=== PATIENT | male | born 1950 | race African-American/Black ===

== ENCOUNTER 2019-01-17 13:25 | Inpatient (IN) | payer MEDICARE ==
[2019-01-17] MEDS ORDERED: Lorazepam 2 MG/ML VIAL ONE (14:08)
[2019-01-17] MEDS ORDERED: Piperacillin/Tazobactam 4.5 GM VIAL ONE (14:08)
[2019-01-17 14:47] LABS: Lactic Acid 3.3 mmol/L (0.5-2.2)
[2019-01-17] MEDS ORDERED: Sodium Chloride 0.9% 1,000 ML IV SCH (15:15)
[2019-01-17] MEDS ORDERED: Dextrose 5% in Water 1,000 ML IV PRN (15:23)
[2019-01-17] MEDS ORDERED: Calcium Gluc 4.6 MEQ/10 ML (100 MG/ML) SLOW IVP ONE (15:25)
[2019-01-17] MEDS ORDERED: Calcium Gluconate 4.6 MEQ in Sodium Chloride 0.9% 100 ML IVPB SCH ×2 (15:30→23:15)
[2019-01-17] MEDS ORDERED: Piperacillin/Tazobactam 3.375 GM in Sodium Chloride 0.9% 100 ML IVPB SCH (18:00)
[2019-01-17] MEDS: Sodium Chloride 0.9% 1,000 ML IV SCH (20:00)
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
[2019-01-17] MEDS: Multivitamins, Adult 10 ML, Folic Acid 1 MG, Thiamine HCl 100 MG in Dextrose 5 %-0.45 %... IV SCH (21:16)
[2019-01-17] MEDS: Lorazepam 2 MG/ML VIAL SLOW IVP PRN (22:15)
[2019-01-17] MEDS: Famotidine/PF 20 mg/2ml Vial SLOW IVP SCH (23:16)
[2019-01-18] MEDS: Piperacillin/Tazobactam 3.375 GM in Sodium Chloride 0.9% 100 ML IVPB SCH ×4 (04:53→21:28)
[2019-01-18 05:23] LABS: ALT (SGPT) 31 U/L (8-55); AST (SGOT) 74 U/L (5-34); Alkaline Phosphatase 86 U/L (40-150); Anion Gap 15 mmol/L (10-20); BUN (Urea Nitrogen) Less than 4 mg/dL (8.4-25.7); Bilirubin, Total 2.5 mg/dL (0.2-1.2); CK (CPK) 1429 U/L (30-200); Calc. Creatinine Clearance 90 mL/min (70-130); Carbon Dioxide 23 mmol/L (23-31); Chloride 100 mmol/L (98-107); Estimated GFR-MDRD Greater than 90; Globulin 2.7 g/dL (2.4-3.5); Glucose 166 mg/dL (80-115); Potassium 3.7 mmol/L (3.5-5.1); Protein, Total 5.7 g/dL (5.8-8.1); Sodium 134 mmol/L (136-145)
[2019-01-18 05:31] LABS: #Lymphocytes 1.4 thou/uL (1.20-3.40); #Monocytes 1.5 thou/uL (0.11-0.59); #Neutrophils 12.7 thou/uL (1.40-6.50); %Basophils 0.2 % (0.0-1.0); %Eosinophils 0.2 % (0.0-10.0); %Lymphocytes 8.7 % (21.0-51.0); %Monocytes 9.4 % (0.0-10.0); %Neutrophils 81.6 % (42.0-75.0); Hemoglobin 13.2 g/dL (14.0-18.0); MDiff Complete? YES; Macrocytosis SLIGHT = 6-15 cells (100X) (0-5/hpf); Mean Corpuscular HGB CONC 34.1 g/dL (32.0-36.0); Mean Corpuscular Hemoglobin 34.7 pg (27.0-31.0); Mean Platelet Volume 7.5 fL (7.4-10.4); Platelet Count 168 thou/uL (130-400); Platelet Morphology Comment Appears Adequate; RBC Distribution Width 12.8 % (11.5-14.5); White Blood Cell (WBC) Count 15.6 thou/uL (4.8-10.8)
[2019-01-18] MEDS: Famotidine/PF 20 mg/2ml Vial SLOW IVP SCH ×2 (08:37→21:27)
[2019-01-18] MEDS: Enoxaparin Sodium 40 MG/0.4 ML SYRINGE SC SCH (08:37)
[2019-01-18] MEDS: Sodium Chloride 0.9% 1,000 ML IV SCH ×3 (08:37→21:27)
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
[2019-01-18] MEDS: Lorazepam 2 MG/ML VIAL SLOW IVP PRN ×3 (11:47→21:29)
[2019-01-18] MEDS: Dextrose 50% Abboject 50 ML SYRINGE SLOW IVP PRN (13:08)
[2019-01-18] MEDS: Multivitamins, Adult 10 ML, Folic Acid 1 MG, Thiamine HCl 100 MG in Dextrose 5 %-0.45 %... IV SCH (17:46)
[2019-01-18] MEDS ORDERED: Piperacillin/Tazobactam 3.375 GM in Sodium Chloride 0.9% 100 ML IVPB SCH (20:00)
--- NOTE | 2019-01-18 22:27 | PDOC.HOSPP ---
- Subjective Subjective: More awake, but still altered. - Objective Vital Signs & Weight: Vital Signs (12 hours) Temp 01/18/19 19:00 98.4 F 01/18/19 14:55 98.0 F 01/18/19 10:42 98.6 F Weight Admit Weight 104 lb 0.931 oz Weight 106 lb 4.205 oz Most Recent Monitor Data Heart Rate from ECG 109 NIBP 136/91 NIBP BP-Mean 106 Respiration from ECG 21 SpO2 100 I&O: 01/17/19 01/18/19 01/19/19 06:59 06:59 06:59 Intake Total 950 Output Total 650 Balance 300 Result Diagrams: 01/18/19 04:01 01/18/19 04:01 Additional Labs: Accuchecks 01/18/19 01/18/19 01/18/19 20:16 19:20 16:07 POC Glucose 92 93 115 H 01/18/19 01/18/19 01/18/19 14:02 12:51 10:04 POC Glucose 194 H 68 L 103 01/18/19 01/18/19 01/18/19 08:01 06:08 04:17 POC Glucose 131 H 168 H 176 H 01/18/19 01/18/19 01:57 00:11 POC Glucose 178 H 171 H ROS - Medication Medications: Active Medications Generic Name Dose Route Start Last Admin Trade Name Freq PRN Reason Stop Dose Admin Dextrose/Water 25 gm 01/17/19 15:23 01/18/19 13:08 Dextrose 50% SLOW IVP 25 gm PRN PRN Administration Hypoglycemia Enoxaparin Sodium 40 mg 01/18/19 09:00 01/18/19 08:37 Lovenox SC 40 mg 0900 RENETTA Administration Famotidine 20 mg 01/17/19 21:00 01/18/19 21:27 Pepcid SLOW IVP 20 mg BID RENETTA Administration Multivitamins 10 ml/ Folic 1,011.2 mls @ 100 mls/hr 01/17/19 15:15 01/18/19 17:46 Acid 1 mg/ Thiamine HCl 100 mg IV 1,011.2 mls / Dextrose/Sodium Chloride Q24HR RENETTA Administration Sodium Chloride 1,000 mls @ 100 mls/hr 01/17/19 15:15 01/18/19 21:27 Normal Saline 0.9% IV 1,000 mls .Q10H RENETTA Administration Piperacillin Sod/Tazobactam 100 mls @ 200 mls/hr 01/18/19 04:00 01/18/19 21: 28 Sod 3.375 gm/ Sodium Chloride IVPB 100 mls 0400,1000,1600,2200 RENETTA Administration Lorazepam 2 mg 01/18/19 21:15 01/18/19 21:29 Ativan SLOW IVP 2 mg Q4H PRN Administration Anxiety/Agitation - Exam General - other findings: Encephalopathic. Heart: RRR, no murmur, no gallops, no rubs, normal peripheral pulses Respiratory: CTAB, no wheezes, no ronchi, normal chest expansion, no tachypnea, normal percussion Respiratory - other findings: scattered rales. Gastrointestinal: soft Skin: normal turgor Hosp A/P (1) Acute encephalopathy Code(s): G93.40 - ENCEPHALOPATHY, UNSPECIFIED Status: Acute (2) Hypoglycemia Code(s): E16.2 - HYPOGLYCEMIA, UNSPECIFIED Status: Acute (3) Hypothermia Code(s): T68.XXXA - HYPOTHERMIA, INITIAL ENCOUNTER Status: Acute (4) Alcohol abuse Code(s): F10.10 - ALCOHOL ABUSE, UNCOMPLICATED Status: Acute (5) Cocaine abuse Code(s): F14.10 - COCAINE ABUSE, UNCOMPLICATED Status: Acute (6) Pneumonia Code(s): J18.9 - PNEUMONIA, UNSPECIFIED ORGANISM Status: Acute - Plan More awake, but still encephalopthic. Continue hydration. Continnue abx. Daily Banana bag.
[2019-01-19] MEDS: Piperacillin/Tazobactam 3.375 GM in Sodium Chloride 0.9% 100 ML IVPB SCH ×2 (03:23→09:52)
--- NOTE | 2019-01-19 09:14 | PRG ---
DATE OF SERVICE: 01/19/2019 SUBJECTIVE: Mitch Higuera this morning, he is awake, alert, responsive, but is clearly encephalopathic. OBJECTIVE: VITAL SIGNS: Temperature 98, sats 97% on room air, blood pressure 140/96, respiratory rate 18. GENERAL: He is thrashing all over the bed. CHEST: Decreased breath sounds. No wheezing. CARDIAC: Normal S1 and S2. No gallops. ABDOMEN: No masses. IMPRESSION: 1. Encephalopathy. 2. Alcohol abuse, substance abuse, possibly aspiration pneumonia. Baseline chest x-ray being ordered. He is much improved. I am going to try and discontinue his IV antibiotics. Switch him to oral medication. Supportive care PT. We will follow. Job ID: [id number]
[2019-01-19] MEDS: Famotidine/PF 20 mg/2ml Vial SLOW IVP SCH ×2 (09:44→19:52)
[2019-01-19] MEDS: Lorazepam 2 MG/ML VIAL SLOW IVP PRN ×3 (09:44→19:52)
[2019-01-19] MEDS: Enoxaparin Sodium 40 MG/0.4 ML SYRINGE SC SCH (09:45)
[2019-01-19] MEDS: Sodium Chloride 0.9% 1,000 ML IV SCH (09:51)
--- NOTE | 2019-01-19 11:51 | RAD ---
PORTABLE AP CHEST XRAY: HISTORY: Pneumonia. COMPARISON: 12/11/2017. FINDINGS: The cardiac silhouette and pulmonary vasculature are within normal limits. Pleural an parenchymal sc arring is seen at the left lung base. There are linear densities along the right chest, but 2 separa te chest x-rays were performed, and there are lung markings seen lateral to this region which has the appearance most suggestive of a skin fold. The lungs are otherwise clear. No consolidation is seen . Radiopaque sutures overlie the epigastric region. Vascular calcifications are seen in the thoraci c aorta. IMPRESSION: Findings likely related to chronic lung changes at the left lung base. No acute cardiopulmonary proc ess is appreciated. POS: OFF
[2019-01-19] MEDS: Dextrose 5 % And 0.9 % NaCl 1,000 ML IV SCH (13:12)
[2019-01-19] MEDS: Multivitamins, Adult 10 ML, Folic Acid 1 MG, Thiamine HCl 100 MG in Dextrose 5 %-0.45 %... IV SCH (14:15)
[2019-01-19 15:24] LABS: #Eosinphils 0.1 thou/uL (0.0-0.7); #Lymphocytes 1.5 thou/uL (1.20-3.40); #Monocytes 1.3 thou/uL (0.11-0.59); #Neutrophils 7.6 thou/uL (1.40-6.50); %Basophils 0.1 % (0.0-1.0); %Eosinophils 1.2 % (0.0-10.0); %Monocytes 12.3 % (0.0-10.0); %Neutrophils 72.4 % (42.0-75.0); Hemoglobin 12.2 g/dL (14.0-18.0); Mean Corpuscular HGB CONC 35.7 g/dL (32.0-36.0); Mean Corpuscular Hemoglobin 35.2 pg (27.0-31.0); Mean Corpuscular Volume 98.5 fL (78.0-98.0); Mean Platelet Volume 7.5 fL (7.4-10.4); Platelet Count 148 thou/uL (130-400); RBC Distribution Width 12.2 % (11.5-14.5); Red Blood Cell (RBC) Count 3.48 mill/uL (4.70-6.10); White Blood Cell (WBC) Count 10.5 thou/uL (4.8-10.8)
[2019-01-19 15:36] LABS: ALT (SGPT) 40 U/L (8-55); AST (SGOT) 92 U/L (5-34); Albumin 3.1 g/dL (3.4-4.8); Alkaline Phosphatase 74 U/L (40-150); Anion Gap 12 mmol/L (10-20); BUN (Urea Nitrogen) Less than 4 mg/dL (8.4-25.7); Bilirubin, Total 3.7 mg/dL (0.2-1.2); CK (CPK) 1461 U/L (30-200); Calc. Creatinine Clearance 95 mL/min (70-130); Calcium 7.8 mg/dL (7.8-10.44); Carbon Dioxide 25 mmol/L (23-31); Chloride 96 mmol/L (98-107); Estimated GFR-MDRD Greater than 90; Globulin 2.1 g/dL (2.4-3.5); Glucose 82 mg/dL (80-115); Protein, Total 5.2 g/dL (5.8-8.1); Sodium 130 mmol/L (136-145)
[2019-01-19 15:40] LABS: Potassium 2.9 mmol/L (3.5-5.1)
--- NOTE | 2019-01-19 15:44 | PDOC.HOSPP ---
- Subjective Subjective: Still encephalopathic and non-verbal. - Objective Vital Signs & Weight: Vital Signs (12 hours) Temp BP Pulse Ox 01/19/19 14:56 97.6 F 01/19/19 12:00 158/93 H 01/19/19 10:28 98.3 F 01/19/19 08:00 139/98 H 98 01/19/19 07:00 98.0 F 01/19/19 04:00 142/85 H Weight Admit Weight 104 lb 0.931 oz Weight 103 lb 1.6 oz Most Recent Monitor Data Heart Rate from ECG 104 NIBP 144/104 NIBP BP-Mean 117 Respiration from ECG 23 SpO2 100 I&O: 01/18/19 01/19/19 01/20/19 06:59 06:59 06:59 Intake Total 950 1200 Output Total 650 1000 Balance 300 200 Result Diagrams: 01/19/19 15:09 01/19/19 15:09 Additional Labs: Accuchecks 01/19/19 01/19/19 01/19/19 14:13 12:17 09:59 POC Glucose 87 64 L 91 01/19/19 01/19/19 01/19/19 08:03 06:02 03:58 POC Glucose 99 82 102 01/19/19 01/19/19 01/18/19 01:58 00:18 22:18 POC Glucose 124 H 111 H 135 H 01/18/19 01/18/19 01/18/19 20:16 19:20 16:07 POC Glucose 92 93 115 H ROS - Medication Medications: Active Medications Generic Name Dose Route Start Last Admin Trade Name Sánchezq PRN Reason Stop Dose Admin Dextrose/Water 25 gm 01/17/19 15:23 01/18/19 13:08 Dextrose 50% SLOW IVP 25 gm PRN PRN Administration Hypoglycemia Enoxaparin Sodium 40 mg 01/18/19 09:00 01/19/19 09:45 Lovenox SC 40 mg 0900 RENETTA Administration Famotidine 20 mg 01/17/19 21:00 01/19/19 09:44 Pepcid SLOW IVP 20 mg BID RENETTA Administration Multivitamins 10 ml/ Folic 1,011.2 mls @ 100 mls/hr 01/17/19 15:15 01/19/19 14:15 Acid 1 mg/ Thiamine HCl 100 mg IV 1,011.2 mls / Dextrose/Sodium Chloride Q24HR RENETTA Administration Dextrose/Sodium Chloride 1,000 mls @ 100 mls/hr 01/19/19 13:00 01/19/19 13:12 D5 0.9% Ns IV 1,000 mls .Q10H RENETTA Administration Lorazepam 2 mg 01/18/19 21:15 01/19/19 14:16 Ativan SLOW IVP 2 mg Q4H PRN Administration Anxiety/Agitation - Exam General - other findings: encephalopathic. Not interactive. Does not speak. Heart: RRR, no murmur, no gallops, no rubs, normal peripheral pulses Respiratory: CTAB, no wheezes, no rales, no ronchi, normal chest expansion, no tachypnea, normal percussion Gastrointestinal: soft, non-distended, normal bowel sounds Extremities: no cyanosis, no clubbing, no edema Extremeties - other findings: Few small superficial abrasions. Neurological - other findings: Moves entire body spontaneously. encephalopathic. Musculoskeletal: diffuse muscle atrophy Hosp A/P (1) Acute encephalopathy Code(s): G93.40 - ENCEPHALOPATHY, UNSPECIFIED Status: Acute (2) Hypoglycemia Code(s): E16.2 - HYPOGLYCEMIA, UNSPECIFIED Status: Acute (3) Hypothermia Code(s): T68.XXXA - HYPOTHERMIA, INITIAL ENCOUNTER Status: Acute (4) Alcohol abuse Code(s): F10.10 - ALCOHOL ABUSE, UNCOMPLICATED Status: Acute (5) Cocaine abuse Code(s): F14.10 - COCAINE ABUSE, UNCOMPLICATED Status: Acute (6) Pneumonia Code(s): J18.9 - PNEUMONIA, UNSPECIFIED ORGANISM Status: Acute (7) Hyponatremia Code(s): E87.1 - HYPO-OSMOLALITY AND HYPONATREMIA Status: Acute - Plan still encephalopthic. Possibly due to drugs, EtOH WD, or possibly some brain injury due to those things in addition to hypoglycemia and hypothermia. Would like to repeat CT, but he will not be still. Had some BZD's and did not do much to settle his moving. Continue hydration. Recheck labs. Continue abx. Dr. Castaneda changed to PO, but not sure he will be able to take po' s. Daily Banana bag. Appreciate Strap Setter input. Per nurse, IV situation is tenuous. May need to consider DHT feeds.
[2019-01-19] MEDS ORDERED: Potassium Chloride 20 MEQ TAB PO SCH (15:45)
[2019-01-19] MEDS ORDERED: Potassium Chloride 40 MEQ in Sodium Chloride 0.9% 500 ML IVPB SCH (16:15)
[2019-01-19] MEDS: Amoxicillin/Potassium Clav 500 MG TAB PO SCH (19:53)
[2019-01-20] MEDS: Dextrose 5 % And 0.9 % NaCl 1,000 ML IV SCH (02:03)
[2019-01-20] MEDS ORDERED: Potassium Chloride 40 MEQ in Premix Bag 1 BAG IVPB PRN (02:59)
[2019-01-20] MEDS ORDERED: Potassium Chloride 20 MEQ TAB PO PRN (02:59)
[2019-01-20] MEDS ORDERED: Potassium Phosphate 12 MMOL in Sodium Chloride 0.9% 250 ML 250 ML IV PRN (02:59)
[2019-01-20] MEDS ORDERED: Magnesium Oxide 400 MG TAB PO PRN ×2 (02:59)
[2019-01-20] MEDS ORDERED: Potassium Phosphate 9 MMOL in Sodium Chloride 0.9% 100 ML IVPB PRN (02:59)
[2019-01-20] MEDS ORDERED: CCU ELECTROLYTE REPLACEMENT PROTOCOL FS PRN (02:59)
[2019-01-20] MEDS ORDERED: Potassium Phosphate 15 MMOL in Sodium Chloride 0.9% 250 ML 250 ML IV PRN (02:59)
[2019-01-20] MEDS ORDERED: PHOS-NAK 1 PKT PACK PO PRN ×2 (02:59)
[2019-01-20 06:21] LABS: #Basophils 0.1 thou/uL (0.0-0.2); #Eosinphils 0.1 thou/uL (0.0-0.7); #Lymphocytes 1.4 thou/uL (1.20-3.40); #Monocytes 1.1 thou/uL (0.11-0.59); #Neutrophils 6.6 thou/uL (1.40-6.50); %Basophils 0.6 % (0.0-1.0); %Lymphocytes 15.2 % (21.0-51.0); %Monocytes 11.6 % (0.0-10.0); %Neutrophils 71.5 % (42.0-75.0); Mean Corpuscular HGB CONC 34.5 g/dL (32.0-36.0); Mean Corpuscular Volume 98.4 fL (78.0-98.0); Mean Platelet Volume 7.3 fL (7.4-10.4); Platelet Count 182 thou/uL (130-400); Red Blood Cell (RBC) Count 3.82 mill/uL (4.70-6.10); White Blood Cell (WBC) Count 9.2 thou/uL (4.8-10.8)
[2019-01-20 06:40] LABS: Anion Gap 12 mmol/L (10-20); BUN (Urea Nitrogen) Less than 4 mg/dL (8.4-25.7); Calc. Creatinine Clearance 95 mL/min (70-130); Calcium 8.1 mg/dL (7.8-10.44); Carbon Dioxide 25 mmol/L (23-31); Chloride 92 mmol/L (98-107); Estimated GFR-MDRD Greater than 90; Glucose 117 mg/dL (80-115); Sodium 126 mmol/L (136-145)
[2019-01-20] MEDS: Enoxaparin Sodium 40 MG/0.4 ML SYRINGE SC SCH (08:59)
[2019-01-20] MEDS: Sodium Chloride 0.9% 1,000 ML IV SCH (08:59)
[2019-01-20] MEDS: Famotidine/PF 20 mg/2ml Vial SLOW IVP SCH ×2 (08:59→20:01)
[2019-01-20] MEDS: Amoxicillin/Potassium Clav 500 MG TAB PO SCH ×2 (09:00→20:01)
--- NOTE | 2019-01-20 09:21 | PRG ---
DATE OF SERVICE: 01/20/2019 SUBJECTIVE: Mitch Higuera remains encephalopathic, had no nutrition for 3 days, probably going to need a feeding tube. We need to try and get family members to assess the situation. OBJECTIVE: VITAL SIGNS: Temperature 97, blood pressure 142/87, respirations 18, pulse 80. CHEST: Decreased breath sounds. No wheezing. CARDIAC: Normal S1 and S2. No gallops. ABDOMEN: No masses. LABORATORY DATA: Sodium is 126, glucose is 140. Lytes are normal otherwise. White count 9000. ASSESSMENT AND PLAN: 1. Aspiration pneumonia. 2. Encephalopathy. 3. Hyponatremia. Switching his IV to normal saline. Urinary sodium being ordered. P.o. antibiotics, supportive care, PT. We will follow strict is. Job ID: [id number]
[2019-01-20 09:33] LABS: Magnesium 1.2 mg/dL (1.6-2.6)
[2019-01-20 09:37] LABS: Phosphorus 1.3 mg/dL (2.3-4.7)
[2019-01-20] MEDS: Lorazepam 2 MG/ML VIAL SLOW IVP PRN (11:03)
[2019-01-20] MEDS: Magnesium 2 GM/50 ML 2 GM in Premix Bag 1 BAG IVPB PRN (11:42)
[2019-01-20] MEDS: Multivitamins, Adult 10 ML, Folic Acid 1 MG, Thiamine HCl 100 MG in Dextrose 5 %-0.45 %... IV SCH (14:41)
--- NOTE | 2019-01-20 15:18 | PQF ---
CLINICAL DOCUMENTATION IMPROVEMENT CLARIFICATION FORM: ICD-10 Updated PLEASE DO AN ADDENDUM TO THE PROGRESS NOTE WITH ANY DOCUMENTATION UPDATES OR ADDITIONS AND CARRY THROUGH TO DC SUMMARY. THANK YOU. Date: 01/20/2019 ATTN: Dr. Juárez Please exercise your independent, professional judgment in responding to the clarification form. 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 Chronic alcoholism. Hypomagnesemia. Hypocalcemia. Rhabdomyolysis, mild. TREATMENT: [employer]visor [employer] Assessment triggered for BMI 16.2. Moderate Malnutrition (in acute illness) Energy Intake: <75% of estimated energy requirement for > 7 days Weight Loss: 1-2%/1 week; 5%/ 1 month; 7.5%/3 months Other: mild body fat loss; mild muscle mass loss; mild fluid accumulation; Severe Malnutrition (in acute illness) Energy Intake: < 50% of estimated energy requirement for > 5 days Weight Loss: >1-2%/1 week; >5%/1 month; >7.5%/3 months Other: moderate body fat loss; moderate muscle mass loss; moderate- severe fluid accumulation; measurably reduced supplier development manager strength Moderate Malnutrition (in chronic illness) Energy Intake: <75% of estimated energy requirement for >1 month Weight Loss: 5%/1 month; 7.5%/3 months; 10%/6 months; 20%/1 year Other: mild body fat loss; mild muscle mass loss; mild fluid accumulation Severe Malnutrition (in chronic illness) Energy Intake: <75% of estimated energy requirement for >1 month Weight Loss: >5%/1 month; >7.5%/3 months; >10%/6 months; >20%/1 year Other: severe body fat loss; severe muscle mass loss; severe fluid accumulation; measurably reduced supplier development manager strength Thank you, Nazanin (This form is maintained as a part of the permanent medical record) 2015 [employer] All Rights Reserved Nazanin Flores RN, BSN [email or web address] Office: [phone] [facility]
--- NOTE | 2019-01-20 15:43 | PDOC.HOSPP ---
- Subjective Encounter Date: 01/20/19 Encounter Time: 14:30 Subjective: Patient seen and examined for Encephalopathy. Remains confused. No fever/ chills.No overnight events - Objective Vital Signs & Weight: Vital Signs (12 hours) Temp Pulse Ox 01/20/19 15:12 97.7 F 01/20/19 11:17 98.0 F 01/20/19 08:00 100 01/20/19 07:29 97.9 F 01/20/19 03:51 98.3 F Weight Admit Weight 104 lb 0.931 oz Weight 101 lb 3.2 oz Most Recent Monitor Data Heart Rate from ECG 94 NIBP 146/90 NIBP BP-Mean 108 Respiration from ECG 17 SpO2 100 I&O: 01/19/19 01/20/19 01/21/19 06:59 06:59 06:59 Intake Total 1200 2409 Output Total 1000 3000 Balance 200 -591 Result Diagrams: 01/20/19 06:12 01/20/19 06:12 Additional Labs: Accuchecks 01/20/19 01/20/19 01/20/19 12:21 10:19 08:09 POC Glucose 93 108 140 H 01/20/19 01/20/19 01/20/19 06:17 04:06 02:11 POC Glucose 124 H 130 H 151 H 01/20/19 01/19/19 01/19/19 00:23 22:06 19:57 POC Glucose 121 H 133 H 119 H 01/19/19 01/19/19 18:25 16:05 POC Glucose 112 H 95 ROS - Review of Systems ROS unobtainable: due to mental status - Medication Medications: Active Medications Generic Name Dose Route Start Last Admin Trade Name Freq PRN Reason Stop Dose Admin Amoxicillin/Clavulanate Potassium 500 mg 01/19/19 21:00 01/20/19 09:00 Augmentin PO 01/24/19 21:01 Not Given Q12HR RENETTA Dextrose/Water 25 gm 01/17/19 15:23 01/18/19 13:08 Dextrose 50% SLOW IVP 25 gm PRN PRN Administration Hypoglycemia Famotidine 20 mg 01/17/19 21:00 01/20/19 08:59 Pepcid SLOW IVP 20 mg BID RENETTA Administration Multivitamins 10 ml/ Folic 1,011.2 mls @ 100 mls/hr 01/17/19 15:15 01/20/19 14:41 Acid 1 mg/ Thiamine HCl 100 mg IV 1,011.2 mls / Dextrose/Sodium Chloride Q24HR RENETTA Administration Magnesium Sulfate 2 gm/ Device 50 mls @ 50 mls/hr 01/20/19 02:59 01/20/19 11: 42 IVPB 50 mls ASDIR PRN Administration MAGNESIUM < 1.4 Sodium Chloride 1,000 mls @ 70 mls/hr 01/20/19 08:45 01/20/19 08:59 Normal Saline 0.9% IV 1,000 mls .[id number] RENETTA Administration Lorazepam 2 mg 01/18/19 21:15 01/20/19 11:03 Ativan SLOW IVP 2 mg Q4H PRN Administration Anxiety/Agitation Sodium Chloride 10 ml 01/20/19 09:00 01/20/19 08:59 Flush - Normal Saline IVF 10 ml Q12HR RENETTA Administration - Exam NAD (confused) Heart: RRR, no rubs Respiratory: CTAB, rales (at bases), rhonchi Gastrointestinal: soft, normal bowel sounds, no guarding, no rigidity Extremities: no edema Psychiatric: not oriented (confused - not following commands) Hosp A/P (1) Toxic metabolic encephalopathy Code(s): G92 - TOXIC ENCEPHALOPATHY Status: Acute (2) Aspiration pneumonia Code(s): J69.0 - PNEUMONITIS DUE TO INHALATION OF FOOD AND VOMIT Status: Acute (3) Chronic alcohol abuse Code(s): F10.10 - ALCOHOL ABUSE, UNCOMPLICATED Status: Chronic (4) Electrolyte abnormality Code(s): E87.8 - OTH DISORDERS OF ELECTROLYTE AND FLUID BALANCE, NEC Status: Acute (5) Moderate protein-calorie malnutrition Code(s): E44.0 - MODERATE PROTEIN-CALORIE MALNUTRITION Status: Acute (6) Other issues per previous notes Status: Acute - Plan person catheter, continue antibiotics, respiratory therapy Cont Atbx Replace Phosphorus and Magnessium Cont IVF Cont MVM AM labs
[2019-01-20] MEDS ORDERED: Potassium Phosphate 9 MMOL in Sodium Chloride 0.9% 100 ML IVPB SCH (15:45)
[2019-01-21] MEDS: Sodium Chloride 0.9% 1,000 ML IV SCH ×2 (00:55→11:56)
[2019-01-21 04:09] LABS: ALT (SGPT) 41 U/L (8-55); AST (SGOT) 65 U/L (5-34); Albumin 2.9 g/dL (3.4-4.8); Alkaline Phosphatase 75 U/L (40-150); Anion Gap 11 mmol/L (10-20); BUN (Urea Nitrogen) Less than 4 mg/dL (8.4-25.7); Bilirubin, Total 2.5 mg/dL (0.2-1.2); Calc. Creatinine Clearance 101 mL/min (70-130); Calcium 8.2 mg/dL (7.8-10.44); Carbon Dioxide 27 mmol/L (23-31); Chloride 94 mmol/L (98-107); Estimated GFR-MDRD Greater than 90; Globulin 2.3 g/dL (2.4-3.5); Glucose 84 mg/dL (80-115); Magnesium 1.3 mg/dL (1.6-2.6); Phosphorus 2.6 mg/dL (2.3-4.7); Potassium 2.6 mmol/L (3.5-5.1); Protein, Total 5.2 g/dL (5.8-8.1); Sodium 129 mmol/L (136-145)
[2019-01-21] MEDS: Magnesium 2 GM/50 ML 2 GM in Premix Bag 1 BAG IVPB PRN (04:18)
[2019-01-21] MEDS: Potassium Chloride 40 MEQ in Sodium Chloride 0.9% 250 ML 250 ML IVPB PRN ×3 (04:24→11:56)
[2019-01-21] MEDS: Amoxicillin/Potassium Clav 500 MG TAB PO SCH ×2 (09:00→20:50)
[2019-01-21] MEDS: Famotidine/PF 20 mg/2ml Vial SLOW IVP SCH ×2 (09:00→20:23)
--- NOTE | 2019-01-21 10:18 | PRG ---
DATE OF SERVICE: 01/21/2019 SUBJECTIVE: Mr. Higuera this morning, still remains encephalopathic. OBJECTIVE: VITAL SIGNS: Blood pressure 133/79, temperature 98, saturations 96, respirations 18. CHEST: No wheezing or crackles. CARDIAC: Normal S1 and S2. No gallops. ABDOMEN: No masses. LABORATORY DATA: Sodium is 129, potassium is 2.6. His urinary sodium was 165, suggest that he may very well have SIADH. Albumin is low. ASSESSMENT AND PLAN: 1. Encephalopathy. 2. Hyponatremia. Need nutrition. Supportive care. P.o. antibiotics. Prognosis is guarded. Replace electrolytes. Job ID: [id number]
[2019-01-21] MEDS: Dextrose 50% Abboject 50 ML SYRINGE SLOW IVP PRN (10:22)
--- NOTE | 2019-01-21 10:37 | PQF ---
CLINICAL DOCUMENTATION IMPROVEMENT CLARIFICATION FORM: ICD-10 Updated PLEASE DO AN ADDENDUM TO THE PROGRESS NOTE WITH ANY DOCUMENTATION UPDATES OR ADDITIONS AND CARRY THROUGH TO DC SUMMARY. THANK YOU. DATE: 01/21/2019 ATTN: Dr. Ventura Please exercise your independent, professional judgment in responding to the clarification form. Clinical indicators are provided on the bottom of this form for your review Please check appropriate box(es): [ x ] Sepsis due to Aspiration Pneumonia. [ ] Sepsis due to other: [ ] Severe sepsis with acute organ dysfunction of: (Examples: encephalopathy, other) [ ] Localized infection without sepsis [ ] Other diagnosis [ ] Unable to determine In addition, please specify: Present on Admission (POA): [ x] Yes [ ] No [ ] Unable to determine For continuity of documentation, please document condition throughout progress notes and discharge summary. Thank You. CLINICAL INDICATORS - SIGNS / SYMPTOMS / LABS H&P 01/17: BP 110/75, pulse 103, resp. 20, O2 sat 92% RA LAB: initial lactic acid was 4.1, repeat 3.3 Possible sepsis. The pt may have left-sided pneumonia. He has a mild tachycardia that did not respond to fluid resuscitation and lactic acidosis. PN 01/20: Toxic metabolic encephalopathy. Aspiration pneumonia . RISKS: H&P: Acute encephalopathy with unconscious state. Chronic alcoholism. 01/18 (Castaneda) Metabolic encephalopathy, aspiration pneumonia. TREATMENT: Order 01/17: IV Zosyn. Dc'd 01/17. MAR: 01/19: Augmentin 500mg po q12 hr MAR: 01/20 NS IV 70ml/hr Thank you, Nazanin (This form is maintained as a part of the permanent medical record) 2015 [employer]. All Rights Reserved Nazanin Flores RN, BSN [email or web address] Office: [phone] [facility]
[2019-01-21 10:52] LABS: ALT (SGPT) 41 U/L (8-55); AST (SGOT) 60 U/L (5-34); Albumin 2.9 g/dL (3.4-4.8); Alkaline Phosphatase 73 U/L (40-150); Anion Gap 11 mmol/L (10-20); BUN (Urea Nitrogen) Less than 4 mg/dL (8.4-25.7); Bilirubin, Total 2.2 mg/dL (0.2-1.2); Calc. Creatinine Clearance 117 mL/min (70-130); Carbon Dioxide 26 mmol/L (23-31); Chloride 95 mmol/L (98-107); Estimated GFR-MDRD Greater than 90; Globulin 2.2 g/dL (2.4-3.5); Glucose 65 mg/dL (80-115); Protein, Total 5.1 g/dL (5.8-8.1); Sodium 129 mmol/L (136-145)
--- NOTE | 2019-01-21 12:50 | PDOC.HOSPP ---
- Subjective Encounter Date: 01/21/19 Encounter Time: 10:40 non-verbal Subjective: Patient seen and examined. No overnight events - Objective Vital Signs & Weight: Vital Signs (12 hours) Temp Pulse Ox 01/21/19 11:22 98.0 F 01/21/19 08:00 100 01/21/19 07:13 98.0 F 01/21/19 03:57 98.3 F Weight Admit Weight 104 lb 0.931 oz Weight 106 lb 14.4 oz Most Recent Monitor Data Heart Rate from ECG 90 NIBP 133/79 NIBP BP-Mean 97 Respiration from ECG 22 SpO2 100 I&O: 01/20/19 01/21/19 01/22/19 06:59 06:59 06:59 Intake Total 2409 2394 Output Total 3000 1825 Balance -591 569 Result Diagrams: 01/20/19 06:12 01/21/19 09:58 Additional Labs: Accuchecks 01/21/19 01/21/19 01/21/19 10:02 05:33 03:49 POC Glucose 72 87 99 01/21/19 01/21/19 01/20/19 02:01 00:01 22:07 POC Glucose 104 117 H 118 H 01/20/19 01/20/19 01/20/19 20:18 18:22 16:47 POC Glucose 131 H 127 H 107 01/20/19 12:21 POC Glucose 93 EKG Reviewed by me: Yes ROS - Review of Systems ROS unobtainable: due to mental status - Medication Medications: Active Medications Generic Name Dose Route Start Last Admin Trade Name Freq PRN Reason Stop Dose Admin Amoxicillin/Clavulanate Potassium 500 mg 01/19/19 21:00 01/21/19 09:00 Augmentin PO 01/24/19 21:01 Not Given Q12HR RENETTA Dextrose/Water 25 gm 01/17/19 15:23 01/21/19 10:22 Dextrose 50% SLOW IVP 25 gm PRN PRN Administration Hypoglycemia Famotidine 20 mg 01/17/19 21:00 01/21/19 09:00 Pepcid SLOW IVP 20 mg BID RENETTA Administration Multivitamins 10 ml/ Folic 1,011.2 mls @ 100 mls/hr 01/17/19 15:15 01/20/19 14:41 Acid 1 mg/ Thiamine HCl 100 mg IV 1,011.2 mls / Dextrose/Sodium Chloride Q24HR RENETTA Administration Potassium Chloride 40 meq/ 270 mls @ 135 mls/hr 01/20/19 02:59 01/21/19 11:56 Sodium Chloride IVPB 270 mls ASDIR PRN Administration FOR SERUM K+ 2.5 - 3.5 Magnesium Sulfate 2 gm/ Device 50 mls @ 50 mls/hr 01/20/19 02:59 01/21/19 04: 18 IVPB 50 mls ASDIR PRN Administration MAGNESIUM < 1.4 Sodium Chloride 1,000 mls @ 70 mls/hr 01/20/19 08:45 01/21/19 11:56 Normal Saline 0.9% IV 1,000 mls .[id number] RENETTA Administration Lorazepam 2 mg 01/18/19 21:15 01/20/19 11:03 Ativan SLOW IVP 2 mg Q4H PRN Administration Anxiety/Agitation Sodium Chloride 10 ml 01/20/19 09:00 01/21/19 09:00 Flush - Normal Saline IVF 10 ml Q12HR RENETTA Administration - Exam NAD, ill appearing Eye: PERRL, anicteric sclera ENT: normocephalic atraumatic, no oropharyngeal lesions Neck: supple, symmetric, no JVD Heart: RRR, no murmur, no gallops Respiratory: CTAB, no wheezes, no rales Gastrointestinal: soft, non-tender, non-distended Extremities: no cyanosis, no clubbing, no edema Skin: normal turgor, no lesions Neurological: CN's grossly intact Musculoskeletal: normal tone, normal strength Psychiatric: normal affect Hosp A/P (1) Sepsis Code(s): A41.9 - SEPSIS, UNSPECIFIED ORGANISM Status: Acute (2) Aspiration pneumonia Code(s): J69.0 - PNEUMONITIS DUE TO INHALATION OF FOOD AND VOMIT Status: Acute (3) Acute encephalopathy Code(s): G93.40 - ENCEPHALOPATHY, UNSPECIFIED Status: Acute (4) Alcohol abuse Code(s): F10.10 - ALCOHOL ABUSE, UNCOMPLICATED Status: Acute (5) Cocaine abuse Code(s): F14.10 - COCAINE ABUSE, UNCOMPLICATED Status: Acute (6) Electrolyte abnormality Code(s): E87.8 - OTH DISORDERS OF ELECTROLYTE AND FLUID BALANCE, NEC Status: Acute (7) Moderate protein-calorie malnutrition Code(s): E44.0 - MODERATE PROTEIN-CALORIE MALNUTRITION Status: Acute (8) Failure to thrive in adult Status: Acute - Plan old records reviewed/req, continue antibiotics replace potassium and magnesium medication reviewed as below symptomatic treatment continue augmentin nutritional support
--- NOTE | 2019-01-21 13:24 | PDOC.PALCO ---
Palliative Care Consult - Consult Details Requesting Physician: Dr Castaneda Reason for Consult: goals of care Family Members Present: None - Pertinent HPI Mr Kalen was found non responsive and EMS was called. Patient has no known residence. In route to emergency room patient was hypothermic, with glucose of 32. Admitted to IMCU secondary to compromised nonresponsive state. Palliative Care consult for assistance with goals of care. Palliative care unable to determine patient next of kin. Sister is to arrive 01/22, there is a woman who says she is his spouse but they were not legally and have not lived together recently. Patient appears to have had transient living situations secondary to substance/alcohol abuse. Nephew is currently point of contact. - Pertinent PMH Unable to determine secondary to patient non responsive status. - Social History Smoking Status: Smokes 11 or more cig/day Smoking: cigarettes Alcohol Use: heavy Drug Use History: cocaine (transient living situations) - Allergies Allergies/Adverse Reactions: Allergies Allergy/AdvReac Type Severity Reaction Status Date / Time No Known Drug Allergies Allergy Verified 01/18/19 03:32 - Subjective Non labored respirations, unable to arouse. ROS: Unable to assess ROS as patient is non responsive - Objective Vital Signs: Vital Signs - Most Recent Temp Pulse Resp BP Pulse Ox 98.0 F 158/93 H 100 01/21/19 11:22 01/19/19 12:00 01/21/19 08:00 Palliative Performance Scale: 20 - Physical Exam Deviation from normal: non responsive HEENT: moist MMs Respiratory: clear to auscultation bilateral, unlabored breathing Deviation from normal: diminished to bases Cardiovascular: RRR Deviation from normal: murmur Gastrointestinal: soft, non-tender Musculoskeletal: no edema Skin: normal turgor - Problem List (1) Palliative care encounter Code(s): Z51.5 - ENCOUNTER FOR PALLIATIVE CARE Current Visit: Yes Status: Acute (2) Acute encephalopathy Code(s): G93.40 - ENCEPHALOPATHY, UNSPECIFIED Current Visit: Yes Status: Acute (3) Alcohol abuse Code(s): F10.10 - ALCOHOL ABUSE, UNCOMPLICATED Current Visit: Yes Status: Acute (4) Moderate protein-calorie malnutrition Code(s): E44.0 - MODERATE PROTEIN-CALORIE MALNUTRITION Current Visit: Yes Status: Acute - Plan/Recommendations Plan: Remi Garner RNout of school hours care worker arranged family meeting tomorrow after patient sister arrives from out of town. Will address resuscitative status with family and goals of care. [40] minutes spent on this encounter with >50% of the time in counseling and coordination of care. Thank you for this very appropriate consult.
[2019-01-21] MEDS: Multivitamins, Adult 10 ML, Folic Acid 1 MG, Thiamine HCl 100 MG in Dextrose 5 %-0.45 %... IV SCH (15:52)
[2019-01-21] MEDS: Dextrose 5 % And 0.9 % NaCl 1,000 ML IV SCH (17:07)
[2019-01-22] MEDS: Sodium Chloride 0.9% 1,000 ML IV SCH (04:45)
[2019-01-22] MEDS: Dextrose 5 % And 0.9 % NaCl 1,000 ML IV SCH (05:55)
[2019-01-22 07:21] LABS: Hemoglobin 11.5 g/dL (14.0-18.0); Mean Corpuscular HGB CONC 34.1 g/dL (32.0-36.0); Mean Corpuscular Hemoglobin 34.5 pg (27.0-31.0); Mean Platelet Volume 7.1 fL (7.4-10.4); Platelet Count 223 thou/uL (130-400); RBC Distribution Width 12.3 % (11.5-14.5); Red Blood Cell (RBC) Count 3.34 mill/uL (4.70-6.10); White Blood Cell (WBC) Count 7.5 thou/uL (4.8-10.8)
[2019-01-22 07:22] LABS: ALT (SGPT) 36 U/L (8-55); AST (SGOT) 45 U/L (5-34); Albumin 2.8 g/dL (3.4-4.8); Alkaline Phosphatase 71 U/L (40-150); Anion Gap 9 mmol/L (10-20); BUN (Urea Nitrogen) Less than 4 mg/dL (8.4-25.7); Bilirubin, Total 1.8 mg/dL (0.2-1.2); Calc. Creatinine Clearance 104 mL/min (70-130); Calcium 8.1 mg/dL (7.8-10.44); Carbon Dioxide 25 mmol/L (23-31); Chloride 97 mmol/L (98-107); Estimated GFR-MDRD Greater than 90; Globulin 2.4 g/dL (2.4-3.5); Glucose 123 mg/dL (80-115); Magnesium 1.4 mg/dL (1.6-2.6); Potassium 3.2 mmol/L (3.5-5.1); Protein, Total 5.2 g/dL (5.8-8.1); Sodium 128 mmol/L (136-145)
[2019-01-22 08:14] LABS: Band 3 % (5-11); Eosinophils 2 % (0-10); Lymphocytes 11 % (21-51); MDiff Complete? YES; Monocytes 19 % (0-10); Neutrophil 65 % (42-75); Platelet Morphology Comment Appears Adequate; RBC Morphology Normal
[2019-01-22] MEDS ORDERED: Acetaminophen 650 MG Suppository PR PRN (08:31)
[2019-01-22] MEDS ORDERED: Bisacodyl 10 MG SUPP PR PRN (08:31)
[2019-01-22] MEDS ORDERED: Ondansetron PF 4 MG/2 ML Vial IVP PRN (08:31)
[2019-01-22] MEDS ORDERED: Cepastat Lozenges 1 LOZ PO PRN (08:31)
[2019-01-22] MEDS ORDERED: Diabetic Tussin 200 MG/10 ML UDCUP PO PRN (08:31)
[2019-01-22] MEDS ORDERED: Loperamide HCl 2 MG CAP PO PRN (08:31)
[2019-01-22] MEDS ORDERED: Loratadine 10 MG TAB PO PRN (08:31)
[2019-01-22] MEDS ORDERED: Senokot S 8.6-50 MG TAB PO PRN (08:31)
[2019-01-22] MEDS ORDERED: Artificial Tears 18 DROP/0.9 ML EA EYE PRN (08:31)
[2019-01-22] MEDS ORDERED: Ondansetron ODT 4 MG TAB SL PRN (08:31)
[2019-01-22] MEDS ORDERED: Sodium Chloride 0.65% Nasal 44 ML BOT EA NARE PRN (08:31)
[2019-01-22] MEDS ORDERED: hydrALAZINE 20 MG/ML VIAL SLOW IVP PRN (08:31)
[2019-01-22] MEDS ORDERED: Metoclopramide HCl 10 MG/2 ML VIAL IVP PRN (08:31)
[2019-01-22] MEDS ORDERED: HYDROcodone/Acetaminophen 5/325 mg Tablet PO PRN (08:31)
[2019-01-22] MEDS ORDERED: Magnesium Sulfate 3 GM in Sodium Chloride 0.9% 100 ML IVPB SCH (08:45)
--- NOTE | 2019-01-22 10:12 | PDOC.PALPN ---
Palliative Progress Note - Subjective Patient awake and alert today, speech difficult to understand. When asked what he remembers about getting to the hospital he states "i just blacked out". States he is to [facility] Kalen. Breakfast tray to bedside with minimal intake noted, asked if he needed assistance he denied, states he is not very hungry. ROS: 10 point review is negative with the exception of poor appetite. - Objective Vital Signs: Vital Signs - Most Recent Temp Pulse Resp BP Pulse Ox 98.4 F 122/88 94 L 01/22/19 07:33 01/22/19 07:34 01/22/19 08:00 - Physical Exam Deviation from normal: emaciated, cachetic, ill appearing HEENT: moist MMs, EOMI Respiratory: unlabored breathing Gastrointestinal: soft, non-tender Musculoskeletal: pulses present, edema present Deviation from normal: mild edema to left upper arm Neurological: moves all 4 limbs Deviation from normal: poor historian Skin: no rash - Assessment (1) Palliative care encounter Code(s): Z51.5 - ENCOUNTER FOR PALLIATIVE CARE Current Visit: Yes Status: Acute (2) Alcohol abuse Code(s): F10.10 - ALCOHOL ABUSE, UNCOMPLICATED Current Visit: Yes Status: Deleted (3) Moderate protein-calorie malnutrition Code(s): E44.0 - MODERATE PROTEIN-CALORIE MALNUTRITION Current Visit: Yes Status: Chronic - Plan Plan: Mr Higuera is awake and states he is . Sister to arrive today for family meeting to establish MPOA and initiate discussion for goals of care for Mr Higuera. [40] minutes spent on this encounter with >50% of the time in counseling and coordination of care.
[2019-01-22] MEDS: Folic Acid 1 MG TAB PO SCH (10:34)
[2019-01-22] MEDS: Famotidine 20 MG TAB PO SCH ×2 (10:34→20:16)
[2019-01-22] MEDS: Thiamine 100 MG TAB PO SCH (10:34)
[2019-01-22] MEDS: Potassium Chloride 20 MEQ TAB PO SCH ×2 (10:34→17:30)
[2019-01-22] MEDS: Amoxicillin/Potassium Clav 500 MG TAB PO SCH ×2 (10:34→21:03)
[2019-01-22] MEDS: Cyanocobalamin (Vitamin B-12) 1,000 MCG TAB PO SCH (10:34)
[2019-01-22] MEDS: Famotidine/PF 20 mg/2ml Vial SLOW IVP SCH ×2 (10:35→20:16)
[2019-01-22] MEDS: D5 0.9% NS w/ 20 mEq KCl 1,000 ML IV SCH ×3 (10:35→21:04)
--- NOTE | 2019-01-22 10:53 | PRG ---
DATE OF SERVICE: 01/22/2019 SUBJECTIVE: This morning, to my surprise, much more awake, responsive. Less encephalopathic. OBJECTIVE: VITAL SIGNS: Saturations 95% on room air, blood pressure 128/88, temperature 98, and respiratory rate 18. CHEST: No wheezing or crackles. CARDIAC: Normal S1 and S2. No gallops. ABDOMEN: No masses. LABORATORY DATA: Sodium 128. Otherwise, labs unremarkable. IMPRESSION: 1. Encephalopathy improved. 2. Pneumonia, better. 3. Severe deconditioning. PLAN: He can be transferred out of the MICU to medical floor. Continue supportive care, PT eventually placement. Job ID: [id number]
[2019-01-22] MEDS: Nicotine 7 MG PATCH TD SCH (12:54)
--- NOTE | 2019-01-22 12:56 | PDOC.HOSPP ---
- Subjective Encounter Date: 01/22/19 Encounter Time: 10:30 - Objective Vital Signs & Weight: Vital Signs (12 hours) Temp BP Pulse Ox 01/22/19 12:00 152/82 H 01/22/19 11:06 98.5 F 01/22/19 08:00 94 L 01/22/19 07:34 122/88 01/22/19 07:33 98.4 F 01/22/19 04:00 98.1 F 147/83 H Weight Admit Weight 104 lb 0.931 oz Weight 104 lb 7.986 oz Most Recent Monitor Data Heart Rate from ECG 111 NIBP 143/79 NIBP BP-Mean 100 Respiration from ECG 19 SpO2 98 I&O: 01/21/19 01/22/19 01/23/19 06:59 06:59 06:59 Intake Total 2394 2267 Output Total 1825 1075 Balance 569 1192 Result Diagrams: 01/22/19 06:39 01/22/19 06:39 Additional Labs: Accuchecks 01/22/19 01/22/19 01/22/19 10:34 08:23 04:08 POC Glucose 147 H 127 H 149 H 01/22/19 01/22/19 01/21/19 02:18 00:07 22:28 POC Glucose 148 H 144 H 161 H 01/21/19 01/21/19 01/21/19 20:13 18:23 16:17 POC Glucose 124 H 102 109 01/21/19 14:12 POC Glucose 85 ROS - Review of Systems ENT: denies: ear pain, ear discharge, nose pain, nose discharge, nose congestion , mouth pain, mouth swelling, throat pain, throat swelling, other Respiratory: denies: cough, dry, shortness of breath, hemoptysis, SOB with excertion, pleuritic pain, sputum, wheezing, other Cardiovascular: denies: chest pain, palpitations, orthopnea, paroxysmal noc. dyspnea, edema, light headedness, other Gastrointestinal: denies: nausea, vomitting, abdominal pain, diarrhea, constipation, melena, hematochezia, other Genitourinary: denies: dysuria, frequency, incontinence, hematuria, retention, other Musculoskeletal: denies: neck pain, shoulder pain, arm pain, back pain, hand pain, leg pain, foot pain, other - Medication Medications: Active Medications Generic Name Dose Route Start Last Admin Trade Name Freq PRN Reason Stop Dose Admin Amoxicillin/Clavulanate Potassium 500 mg 01/19/19 21:00 01/22/19 10:34 Augmentin PO 01/24/19 21:01 500 mg Q12HR RENETTA Administration Cyanocobalamin 1,000 mcg 01/22/19 09:00 01/22/19 10:34 Vitamin B-12 PO 1,000 mcg DAILY RENETTA Administration Dextrose/Water 25 gm 01/17/19 15:23 01/21/19 10:22 Dextrose 50% SLOW IVP 25 gm PRN PRN Administration Hypoglycemia Famotidine 20 mg 01/17/19 21:00 01/22/19 10:35 Pepcid SLOW IVP 20 mg BID RENETTA Administration Famotidine 20 mg 01/22/19 09:00 01/22/19 10:34 Pepcid PO 20 mg BID RENETTA Administration Folic Acid 1 mg 01/22/19 09:00 01/22/19 10:34 Folvite PO 1 mg DAILY RENETTA Administration Multivitamins 10 ml/ Folic 1,011.2 mls @ 100 mls/hr 01/17/19 15:15 01/21/19 15:52 Acid 1 mg/ Thiamine HCl 100 mg IV 1,011.2 mls / Dextrose/Sodium Chloride Q24HR RENETTA Administration Potassium Chloride/Dextrose/Sod Cl 1,000 mls @ 75 mls/hr 01/22/19 08:30 01/22 10:35 D5 0.9% Ns W/ 20 Meq Kcl IV Not Given .[id number] [facility] Potassium Chloride 20 meq 01/22/19 12:00 01/22/19 10:34 K-Dur PO 20 meq TID-WM RENETTA Administration Sodium Chloride 10 ml 01/20/19 09:00 01/22/19 10:35 Flush - Normal Saline IVF Not Given Q12HR RENETTA Thiamine HCl 100 mg 01/22/19 09:00 01/22/19 10:34 Thiamine PO 100 mg DAILY RENETTA Administration - Exam NAD, awake alert Eye: PERRL, anicteric sclera ENT: normocephalic atraumatic, no oropharyngeal lesions Neck: supple, symmetric, no JVD, no thyromegaly Heart: RRR, no murmur, no gallops Respiratory: CTAB, no wheezes, no rales Gastrointestinal: soft, non-tender, non-distended Extremities: no cyanosis, no clubbing, no edema Skin: normal turgor, no lesions Neurological: CN's grossly intact, normal sensation to touch, no focal deficits Musculoskeletal: normal tone, normal strength Psychiatric: normal affect, normal behavior Hosp A/P (1) Aspiration pneumonia Code(s): J69.0 - PNEUMONITIS DUE TO INHALATION OF FOOD AND VOMIT Status: Acute (2) Cocaine abuse Code(s): F14.10 - COCAINE ABUSE, UNCOMPLICATED Status: Chronic (3) Electrolyte abnormality Code(s): E87.8 - OTH DISORDERS OF ELECTROLYTE AND FLUID BALANCE, NEC Status: Acute (4) Moderate protein-calorie malnutrition Code(s): E44.0 - MODERATE PROTEIN-CALORIE MALNUTRITION Status: Chronic (5) Failure to thrive in adult Status: Chronic (6) Toxic metabolic encephalopathy Code(s): G92 - TOXIC ENCEPHALOPATHY Status: Acute (7) Chronic alcohol abuse Code(s): F10.10 - ALCOHOL ABUSE, UNCOMPLICATED Status: Chronic - Plan old records reviewed/req, dialysis social worker Transfer to medical palliative care on case medication reviewed as below symptomatic treatment continue augmentin nutritional support replace electrolytes
[2019-01-22] MEDS: Multivitamins, Adult 10 ML, Folic Acid 1 MG, Thiamine HCl 100 MG in Dextrose 5 %-0.45 %... IV SCH (19:26)
[2019-01-22] MEDS: Lorazepam 2 MG/ML VIAL SLOW IVP PRN (20:12)
[2019-01-23 10:16] LABS: Anion Gap 11 mmol/L (10-20); BUN (Urea Nitrogen) Less than 4 mg/dL (8.4-25.7); Calc. Creatinine Clearance 121 mL/min (70-130); Calcium 8.2 mg/dL (7.8-10.44); Carbon Dioxide 25 mmol/L (23-31); Chloride 96 mmol/L (98-107); Estimated GFR-MDRD Greater than 90; Glucose 107 mg/dL (80-115); Magnesium 1.4 mg/dL (1.6-2.6); Potassium 3.3 mmol/L (3.5-5.1); Sodium 129 mmol/L (136-145)
[2019-01-23] MEDS: Potassium Chloride 20 MEQ TAB PO SCH ×3 (10:44→17:10)
[2019-01-23] MEDS: Famotidine 20 MG TAB PO SCH ×2 (10:44→21:13)
[2019-01-23] MEDS: Folic Acid 1 MG TAB PO SCH (10:44)
[2019-01-23] MEDS: Thiamine 100 MG TAB PO SCH (10:44)
[2019-01-23] MEDS: Cyanocobalamin (Vitamin B-12) 1,000 MCG TAB PO SCH (10:44)
[2019-01-23] MEDS: Amoxicillin/Potassium Clav 500 MG TAB PO SCH ×2 (10:45→21:13)
[2019-01-23] MEDS: Famotidine/PF 20 mg/2ml Vial SLOW IVP SCH ×2 (12:48→19:46)
[2019-01-23] MEDS: Nicotine 7 MG PATCH TD SCH (13:09)
[2019-01-23] MEDS ORDERED: Magnesium Sulfate 3 GM in Sodium Chloride 0.9% 100 ML IVPB SCH (16:45)
--- NOTE | 2019-01-23 17:08 | PRG ---
DATE OF SERVICE: 01/23/2019 SUBJECTIVE: The patient was seen and examined at the bedside. He is awake. He tries to follow my simple commands. OBJECTIVE: VITAL SIGNS: Blood pressure is 121/81, pulse is 107, respirations 20, and O2 saturation is 97% on room air, his temperature is 98.5, maximal temperature is 99.4. GENERAL: He is malnourished. He is emaciated. HEENT: His pupils are responding to light properly. Sclerae are nonicteric. Oral mucosa is slightly dry. NECK: Supple. LUNGS: Clear. HEART: S1 and S2 normal. Slightly tachycardic. No S3. No S4. ABDOMEN: Nondistended, nontender. Bowel sounds are present. EXTREMITIES: No clubbing, cyanosis, or edema. NEUROLOGICAL: He is able to move his all 4 extremities. There is no any motor deficits, but he is alert probably x2. He follows my commands. He tries to answer with simple words. LABORATORY DATA: Labs showed sodium of 129, potassium 3.3, chloride 96, BUN of 4, creatinine 0.4, glycemia is ranging from 109 to 129, magnesium 1.4, calcium 8.2. IMPRESSION: 1. Aspiration pneumonitis. 2. Cocaine abuse. 3. Hypokalemia and hypomagnesemia. 4. Toxic metabolic encephalopathy. 5. Moderate malnutrition. 6. Failure to thrive. 7. Chronic alcohol abuse. PLAN: The patient was transferred to the medical from [facility]. He slept almost all day today. He woke up and he is able to answer simple questions. He does not take much fluids orally. We will plan to give him potassium IV since he is on oral potassium and his potassium is low again. Also, we will give him magnesium IV. He will continue on banana bag. We will continue his Augmentin and we will continue PT and OT. Job ID: [id number]
[2019-01-23] MEDS: Multivitamins, Adult 10 ML, Folic Acid 1 MG, Thiamine HCl 100 MG in Dextrose 5 %-0.45 %... IV SCH (17:09)
[2019-01-23] MEDS: D5 0.9% NS w/ 20 mEq KCl 1,000 ML IV SCH ×2 (19:47→23:47)
[2019-01-23] MEDS: Lorazepam 2 MG/ML VIAL SLOW IVP PRN (23:18)
[2019-01-24 05:56] LABS: Anion Gap 11 mmol/L (10-20); BUN (Urea Nitrogen) Less than 4 mg/dL (8.4-25.7); Calc. Creatinine Clearance 102 mL/min (70-130); Calcium 8.7 mg/dL (7.8-10.44); Carbon Dioxide 25 mmol/L (23-31); Chloride 96 mmol/L (98-107); Estimated GFR-MDRD Greater than 90; Glucose 113 mg/dL (80-115); Magnesium 1.5 mg/dL (1.6-2.6); Sodium 127 mmol/L (136-145)
[2019-01-24] MEDS: Potassium Chloride 20 MEQ TAB PO SCH ×2 (08:34→12:44)
[2019-01-24] MEDS: Famotidine/PF 20 mg/2ml Vial SLOW IVP SCH ×2 (08:36→20:52)
[2019-01-24] MEDS: Amoxicillin/Potassium Clav 500 MG TAB PO SCH ×2 (08:36→20:51)
[2019-01-24] MEDS: Thiamine 100 MG TAB PO SCH (08:36)
[2019-01-24] MEDS: Cyanocobalamin (Vitamin B-12) 1,000 MCG TAB PO SCH (08:36)
[2019-01-24] MEDS: Famotidine 20 MG TAB PO SCH ×2 (08:37→20:51)
[2019-01-24] MEDS: Folic Acid 1 MG TAB PO SCH (08:37)
[2019-01-24] MEDS: D5 0.9% NS w/ 20 mEq KCl 1,000 ML IV SCH ×2 (10:15→15:51)
[2019-01-24] MEDS ORDERED: Metoclopramide HCl 10 MG TAB PO PRN (12:49)
[2019-01-24] MEDS: Nicotine 7 MG PATCH TD SCH (13:19)
--- NOTE | 2019-01-24 16:40 | PRG ---
DATE OF SERVICE: 01/24/2019 SUBJECTIVE: The patient is seen and examined at bedside. He is very comatose. Apparently, he was up almost all night, and finally, he got Ativan and now he is out and very comatose. He is not able to follow my commands. He is not able to respond to me. OBJECTIVE: VITAL SIGNS: Blood pressure is 116/67, pulse is 91, respiratory rate is 20, and O2 saturation is 94% on room air, and temperature is 98.5. LUNGS: Clear. HEART: S1 and S2 normal. No S3. No S4. ABDOMEN: Soft, nondistended. EXTREMITIES: No clubbing, cyanosis, or edema. NEUROLOGIC: Postponed since he is in very comatose state. LABORATORY DATA: Labs showed sodium of 127, potassium 5.0, chloride 96, BUN of 4, creatinine 0.51, glucose is ranging from 89 to 129, magnesium is 1.5. IMPRESSION: 1. Aspiration pneumonitis. 2. Hyponatremia and hypochloremia, not improving. 3. hypomagnesemia with some improvement. 4. Toxic metabolic encephalopathy. Since the patient received Ativan last night, he is in comatose state and we are waiting until this medication affect wears off. 5. Moderate malnutrition. 6. Failure to thrive. 7. Chronic alcohol abuse. 8. Cocaine abuse. PLAN: We will try to supplement his deficiencies. Potassium was stopped today because potassium was up to 5.0. He will continue on some magnesium supplementation since he is malnourished. He will continue on banana bag with minerals and vitamins, and if he does not improve on his sodium deficiency and chloride, we will consider getting Nephrology consultation for further management of his problem. We will try to avoid Ativan as much as possible because it puts him out completely for many hours. He is very sensitive most likely to the medications. We will continue his Augmentin whenever he wakes up and he can take his oral medications safely. Job ID: [id number]
[2019-01-24 16:50] LABS: Hemoglobin 11.9 g/dL (14.0-18.0); Mean Corpuscular HGB CONC 34.3 g/dL (32.0-36.0); Mean Corpuscular Hemoglobin 34.1 pg (27.0-31.0); Mean Corpuscular Volume 99.5 fL (78.0-98.0); Mean Platelet Volume 6.4 fL (7.4-10.4); Platelet Count 313 thou/uL (130-400); RBC Distribution Width 12.1 % (11.5-14.5); White Blood Cell (WBC) Count 9.7 thou/uL (4.8-10.8)
[2019-01-24 17:04] LABS: Band 2 % (5-11); Lymphocytes 15 % (21-51); MDiff Complete? YES; Monocytes 10 % (0-10); Neutrophil 71 % (42-75); Ovalocytes SLIGHT = 2-5 cells (100X) (0-1/hpf); Platelet Morphology Comment Appears Adequate; Polychromasia SLIGHT = 2-3 cells (100X) (0-2/hpf); Reactive Lymphocytes 2 % (0-10)
[2019-01-24] MEDS: Multivitamins, Adult 10 ML, Folic Acid 1 MG, Thiamine HCl 100 MG in Dextrose 5 %-0.45 %... IV SCH ×2 (17:13→17:41)
[2019-01-24] MEDS: Lorazepam 2 MG/ML VIAL SLOW IVP PRN (21:37)
[2019-01-25] MEDS: Lorazepam 2 MG/ML VIAL SLOW IVP PRN (01:39)
[2019-01-25 06:29] LABS: Anion Gap 10 mmol/L (10-20); BUN (Urea Nitrogen) Less than 4 mg/dL (8.4-25.7); Calc. Creatinine Clearance 107 mL/min (70-130); Calcium 8.6 mg/dL (7.8-10.44); Carbon Dioxide 24 mmol/L (23-31); Chloride 90 mmol/L (98-107); Estimated GFR-MDRD Greater than 90; Glucose 85 mg/dL (80-115); Potassium 4.3 mmol/L (3.5-5.1); Sodium 120 mmol/L (136-145)
[2019-01-25] MEDS: Cyanocobalamin (Vitamin B-12) 1,000 MCG TAB PO SCH (08:45)
[2019-01-25] MEDS: Thiamine 100 MG TAB PO SCH (08:47)
[2019-01-25] MEDS: Folic Acid 1 MG TAB PO SCH (08:47)
[2019-01-25 09:27] LABS: Phosphorus 3.5 mg/dL (2.3-4.7)
[2019-01-25] MEDS: Famotidine/PF 20 mg/2ml Vial SLOW IVP SCH ×2 (09:56→20:10)
[2019-01-25] MEDS: D5 0.9% NS w/ 20 mEq KCl 1,000 ML IV SCH (09:57)
[2019-01-25] MEDS: Famotidine 20 MG TAB PO SCH ×2 (09:57→20:10)
[2019-01-25 12:10] LABS: Bilirubin Negative (Negative); Blood, Urine 2+ (Negative); Clarity Clear (Clear); Glucose, Urine (Dipstick) Normal (Negative); Leukocyte 250 Leu/uL (Negative); Nitrite Negative (Negative); Protein, Urine (Dipstick) Negative (Neg-Trace); Squamous Epithelial None Seen HPF (0-3); Urobilinogen Normal mg/dL (Less than 2); WBC/HPF 21-50 HPF (0-3)
[2019-01-25 12:32] LABS: Bacteria/HPF None Seen HPF (None Seen)
[2019-01-25 12:34] LABS: Urine Culture Reflex Yes Yes
[2019-01-25] MEDS: Nicotine 7 MG PATCH TD SCH (12:38)
[2019-01-25] MEDS ORDERED: Magnesium Sulfate 4 GM in Sodium Chloride 0.9% 250 ML 250 ML IVPB SCH (13:45)
[2019-01-25] MEDS ORDERED: Sodium Chloride 3% 100 ML IVPB SCH (14:45)
--- NOTE | 2019-01-25 14:59 | PDOC.HOSPP ---
- Subjective Encounter Date: 01/25/19 Encounter Time: 10:57 Subjective: 68 y/o male with chronic alcoholism admitted after he was found down and unresponsive. Treated with dextroxe for hypoglycemia with improvement of responsiveness. He has intermittent agitation. Oral intake remained very poor. - Objective Vital Signs & Weight: Vital Signs (12 hours) Temp Pulse Resp BP BP Pulse Ox 01/25/19 12:00 132/85 01/25/19 10:50 98.1 F 108 H 20 132/85 01/25/19 08:00 97.7 F 104 H 20 145/70 H 145/76 H 01/25/19 04:00 98.3 F 88 20 121/72 128/82 96 Weight Admit Weight 104 lb 0.931 oz Weight 111 lb 7 oz Most Recent Monitor Data Heart Rate from ECG 105 NIBP 142/87 NIBP BP-Mean 105 Respiration from ECG 18 SpO2 90 I&O: 01/24/19 01/25/19 01/26/19 06:59 06:59 06:59 Intake Total 1150 2190 50 Output Total 1850 950 Balance -700 1240 50 Result Diagrams: 01/24/19 16:40 01/25/19 05:48 Additional Labs: Accuchecks 01/25/19 01/25/19 01/24/19 10:46 05:40 19:49 POC Glucose 113 H 101 112 H 01/24/19 16:47 POC Glucose 95 ROS - Medication Medications: Active Medications Generic Name Dose Route Start Last Admin Trade Name Freq PRN Reason Stop Dose Admin Cyanocobalamin 1,000 mcg 01/22/19 09:00 01/25/19 08:45 Vitamin B-12 PO 1,000 mcg DAILY RENETTA Administration Dextrose/Water 25 gm 01/17/19 15:23 01/21/19 10:22 Dextrose 50% SLOW IVP 25 gm PRN PRN Administration Hypoglycemia Famotidine 20 mg 01/17/19 21:00 01/25/19 09:56 Pepcid SLOW IVP 20 mg BID RENETTA Administration Famotidine 20 mg 01/22/19 09:00 01/25/19 09:57 Pepcid PO Not Given BID RENETTA Folic Acid 1 mg 01/22/19 09:00 01/25/19 08:47 Folvite PO 1 mg DAILY RENETTA Administration Magnesium Sulfate 4 gm/ Sodium 258 mls @ 86 mls/hr 01/25/19 13:45 01/25/19 14 :28 Chloride IVPB 01/25/19 18:00 258 mls NOW RENETTA Administration Nicotine 7 mg 01/22/19 12:00 01/25/19 12:38 Nicoderm Patch TD 7 mg 1200 RENETTA Administration Sodium Chloride 10 ml 01/20/19 09:00 01/25/19 10:01 Flush - Normal Saline IVF 10 ml Q12HR RENETTA Administration Thiamine HCl 100 mg 01/22/19 09:00 01/25/19 08:47 Thiamine PO 100 mg DAILY RENETTA Administration - Exam General - other findings: cachetic elderly male Eye: anicteric sclera ENT: normocephalic atraumatic ENT - other findings: facial wasting noted Heart: RRR Respiratory: no ronchi Respiratory - other findings: fair air entry with trabnsmitted sound bilaterally Gastrointestinal: non-tender, non-distended, normal bowel sounds Gastrointestinal - other findings: scaphoid Extremities: no cyanosis, no edema Neurological: CN's grossly intact Musculoskeletal: generalized weakness, diffuse muscle atrophy Hosp A/P (1) Severe protein-calorie malnutrition Code(s): E43 - UNSPECIFIED SEVERE PROTEIN-CALORIE MALNUTRITION Status: Acute (2) Hyponatremia Code(s): E87.1 - HYPO-OSMOLALITY AND HYPONATREMIA Status: Acute (3) Hypokalemia Code(s): E87.6 - HYPOKALEMIA Status: Acute (4) Aspiration pneumonia Code(s): J69.0 - PNEUMONITIS DUE TO INHALATION OF FOOD AND VOMIT Status: Acute (5) Toxic metabolic encephalopathy Code(s): G92 - TOXIC ENCEPHALOPATHY Status: Acute (6) Chronic alcohol abuse Code(s): F10.10 - ALCOHOL ABUSE, UNCOMPLICATED Status: Chronic (7) Cocaine abuse Code(s): F14.10 - COCAINE ABUSE, UNCOMPLICATED Status: Chronic (8) Failure to thrive in adult Status: Chronic - Plan Stop hypotonic and isotonic solutions. get urine and serum osmolality. get urine sodium. Give 100 cc of 3% saline. Recheck BMP. DC ativan. start seroquel 12.5 at nights. spoke with daughter over the phone to arrange a family meeting.
[2019-01-25] MEDS ORDERED: Sodium Chloride 1 GM TAB PO SCH (15:00)
[2019-01-25 19:17] LABS: Anion Gap 12 mmol/L (10-20); BUN (Urea Nitrogen) Less than 4 mg/dL (8.4-25.7); Calc. Creatinine Clearance 114 mL/min (70-130); Calcium 8.6 mg/dL (7.8-10.44); Carbon Dioxide 21 mmol/L (23-31); Chloride 93 mmol/L (98-107); Estimated GFR-MDRD Greater than 90; Glucose 63 mg/dL (80-115); Potassium 4.2 mmol/L (3.5-5.1); Sodium 122 mmol/L (136-145)
[2019-01-26] MEDS: Dextrose 50% Abboject 50 ML SYRINGE SLOW IVP PRN (04:47)
[2019-01-26] MEDS ORDERED: Sodium Chloride 0.9% 1,000 ML IV SCH (06:15)
[2019-01-26 06:53] LABS: Albumin 2.8 g/dL (3.4-4.8); Anion Gap 11 mmol/L (10-20); BUN (Urea Nitrogen) 4 mg/dL (8.4-25.7); Calc. Creatinine Clearance 106 mL/min (70-130); Calcium 8.4 mg/dL (7.8-10.44); Carbon Dioxide 24 mmol/L (23-31); Chloride 90 mmol/L (98-107); Estimated GFR-MDRD Greater than 90; Glucose 124 mg/dL (80-115); Magnesium 1.5 mg/dL (1.6-2.6); Phosphorus 3.3 mg/dL (2.3-4.7); Potassium 4.1 mmol/L (3.5-5.1); Sodium 121 mmol/L (136-145)
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
[2019-01-26] MEDS: Famotidine/PF 20 mg/2ml Vial SLOW IVP SCH ×2 (08:33→20:34)
[2019-01-26] MEDS: Cyanocobalamin (Vitamin B-12) 1,000 MCG TAB PO SCH (09:17)
[2019-01-26] MEDS: Folic Acid 1 MG TAB PO SCH (09:17)
[2019-01-26] MEDS: Thiamine 100 MG TAB PO SCH (09:17)
[2019-01-26] MEDS: Multivitamin W/ Minerals 1 TAB PO SCH (09:17)
[2019-01-26] MEDS: Famotidine 20 MG TAB PO SCH ×2 (09:17→20:29)
[2019-01-26] MEDS ORDERED: Sodium Chloride 3% 200 ML IVPB SCH (09:30)
[2019-01-26] MEDS ORDERED: Magnesium Sulfate 4 GM in Sodium Chloride 0.9% 250 ML 250 ML IVPB SCH (09:30)
[2019-01-26] MEDS ORDERED: Tolvaptan 15 MG TAB PO ONE (10:00)
[2019-01-26] MEDS ORDERED: Conivaptan 20 MG in Premix Bag 1 BAG IVPB SCH ×2 (10:15→12:00)
--- NOTE | 2019-01-26 10:52 | PDOC.PALPN ---
Palliative Progress Note - Subjective and family friend at bedside. Dr Ackerman and Dr Cardoso also visited with family. Patient sleeping, but attempts to open eyes and minimal smile with verbal stimulation. [place]. ROS: Difficult to obtain response, 10 point review of systems appears negative - Objective Vital Signs: Vital Signs - Most Recent Temp Pulse Resp BP Pulse Ox 98.0 F 104 H 18 129/73 95 01/26/19 07:42 01/26/19 07:42 01/26/19 07:42 01/26/19 07:42 01/26/19 07:42 - Physical Exam Constitutional: confusion Deviation from normal: Emaciated, cachetic, chronically ill appearting HEENT: moist MMs, EOMI Respiratory: no wheezing, clear to auscultation bilateral Deviation from normal: diminished to bases, clear upper lobes Cardiovascular: no significant murmur Gastrointestinal: soft, non-tender Musculoskeletal: pulses present Deviation from normal: lethargic, confused Skin: no rash - Assessment (1) Palliative care encounter Code(s): Z51.5 - ENCOUNTER FOR PALLIATIVE CARE Current Visit: Yes Status: Acute (2) Alcohol abuse Code(s): F10.10 - ALCOHOL ABUSE, UNCOMPLICATED Current Visit: Yes Status: Deleted (3) Moderate protein-calorie malnutrition Code(s): E44.0 - MODERATE PROTEIN-CALORIE MALNUTRITION Current Visit: Yes Status: Chronic - Plan Plan: * confirmed wishes for DNAR *Confirmed NO PEG tub secondary to dysphasia *Confirmed desire for patient to have pleasure feedings, diet changed in order set to reflect. Teaching on measures to prevent aspiration *Family desires to have patient placed in facility in [place], would like Hospice however unable to cover out of pocket expense. Will apply for Medicaid when appropriate. *Will communicate at discharge to accepting physician family wishes for comfort measures *Introduced the option of GIP should the patient decline and become appropriate for inpatient hospice *Revisited conversation from other physicians with family and answered questions in relation to patient current health situation. [] minutes spent on this encounter with >50% of the time in counseling and coordination of care.
[2019-01-26] MEDS: Nicotine 7 MG PATCH TD SCH (11:25)
[2019-01-26 12:01] LABS: Sodium 123 mmol/L (136-145)
[2019-01-26] MEDS: Nystatin 500,000 UNITS/5 ML UDCUP SSW SCH ×3 (12:37→20:34)
[2019-01-26] MEDS: Dronabinol 2.5 MG CAP PO SCH (17:26)
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
[2019-01-26 20:41] LABS: Sodium 131 mmol/L (136-145)
--- NOTE | 2019-01-26 21:25 | PRG ---
DATE OF SERVICE: 01/26/2019 SUBJECTIVE: The patient is seen and examined, still pretty much out of it. Noted with the following vital signs. OBJECTIVE: VITAL SIGNS: Afebrile, temperature 98, pulse 104, respiratory rate of 18, O2 saturations are 95%, blood pressure 129/73. HEENT: Unremarkable. CARDIOVASCULAR SYSTEM: First and second heart sounds were heard. RESPIRATORY SYSTEM: Clear to auscultation. DIGESTIVE SYSTEM: Revealed a benign abdomen. Positive bowel sounds. EXTREMITIES: No peripheral edema. SKIN: No new gross rash. LYMPHATICS: No peripheral lymphadenopathy. LABORATORY INVESTIGATIONS: Significant for sodium of 121. Urine chemistry showed urine osmolality of 580 with a urine sodium 188. IMPRESSION: 1. Hyponatremia, essentially we are dealing with syndrome of inappropriate antidiuretic hormone secretion. 2. Syndrome of inappropriate antidiuretic hormone secretion. 3. Failure to thrive. 4. Possible oropharyngeal candidiasis. PLAN: 1. Discontinue all IV fluid. 2. Anti-ADH, Vaprisol. 3. Repeat the sodium level. 4. Start this patient on swish and swallow nystatin. 5. We will begin to stimulate this patient's appetite with Marinol. 6. Further management will be dependent on the clinical course. Job ID: [id number]
[2019-01-26 22:47] LABS: Sodium 132 mmol/L (136-145)
[2019-01-27 04:46] LABS: #Eosinphils 0.1 thou/uL (0.0-0.7); #Lymphocytes 1.3 thou/uL (1.20-3.40); #Monocytes 2.2 thou/uL (0.11-0.59); %Basophils 0.1 % (0.0-1.0); %Eosinophils 0.5 % (0.0-10.0); %Lymphocytes 7.6 % (21.0-51.0); %Monocytes 13.4 % (0.0-10.0); %Neutrophils 78.4 % (42.0-75.0); Hemoglobin 13.1 g/dL (14.0-18.0); Mean Corpuscular HGB CONC 33.3 g/dL (32.0-36.0); Mean Corpuscular Hemoglobin 33.3 pg (27.0-31.0); Mean Platelet Volume 6.8 fL (7.4-10.4); Platelet Count 445 thou/uL (130-400); RBC Distribution Width 12.5 % (11.5-14.5); Red Blood Cell (RBC) Count 3.94 mill/uL (4.70-6.10); White Blood Cell (WBC) Count 16.6 thou/uL (4.8-10.8)
[2019-01-27 05:08] LABS: ALT (SGPT) 28 U/L (8-55); AST (SGOT) 33 U/L (5-34); Albumin 2.9 g/dL (3.4-4.8); Alkaline Phosphatase 87 U/L (40-150); Anion Gap 15 mmol/L (10-20); BUN (Urea Nitrogen) Less than 4 mg/dL (8.4-25.7); Bilirubin, Total 0.8 mg/dL (0.2-1.2); Calc. Creatinine Clearance 99 mL/min (70-130); Calcium 8.9 mg/dL (7.8-10.44); Carbon Dioxide 24 mmol/L (23-31); Chloride 99 mmol/L (98-107); Estimated GFR-MDRD Greater than 90; Globulin 2.8 g/dL (2.4-3.5); Glucose 90 mg/dL (80-115); Magnesium 1.9 mg/dL (1.6-2.6); Potassium 3.8 mmol/L (3.5-5.1); Protein, Total 5.7 g/dL (5.8-8.1); Sodium 134 mmol/L (136-145)
[2019-01-27] MEDS: Folic Acid 1 MG TAB PO SCH (08:21)
[2019-01-27] MEDS: Thiamine 100 MG TAB PO SCH (08:21)
[2019-01-27] MEDS: Famotidine 20 MG TAB PO SCH ×2 (08:21→20:31)
[2019-01-27] MEDS: Cyanocobalamin (Vitamin B-12) 1,000 MCG TAB PO SCH (08:21)
[2019-01-27] MEDS: Multivitamin W/ Minerals 1 TAB PO SCH (08:21)
[2019-01-27] MEDS: Famotidine/PF 20 mg/2ml Vial SLOW IVP SCH ×2 (08:22→20:32)
[2019-01-27] MEDS: Nystatin 500,000 UNITS/5 ML UDCUP SSW SCH ×4 (08:24→20:32)
[2019-01-27] MEDS ORDERED: Tolvaptan 15 MG TAB PO SCH (09:00)
[2019-01-27] MEDS: Dronabinol 2.5 MG CAP PO SCH ×2 (10:20→16:25)
[2019-01-27] MEDS: Nicotine 7 MG PATCH TD SCH (11:51)
[2019-01-27 12:30] LABS: Sodium 130 mmol/L (136-145)
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
[2019-01-28 06:39] LABS: Mean Corpuscular HGB CONC 34.8 g/dL (32.0-36.0); Mean Corpuscular Hemoglobin 34.8 pg (27.0-31.0); Mean Platelet Volume 6.3 fL (7.4-10.4); Platelet Count 561 thou/uL (130-400); RBC Distribution Width 12.9 % (11.5-14.5); Red Blood Cell (RBC) Count 3.45 mill/uL (4.70-6.10); White Blood Cell (WBC) Count 13.9 thou/uL (4.8-10.8)
[2019-01-28 07:04] LABS: Albumin 2.9 g/dL (3.4-4.8); Anion Gap 13 mmol/L (10-20); BUN (Urea Nitrogen) 5 mg/dL (8.4-25.7); BUN/Creatinine Ratio 9.26; Calc. Creatinine Clearance 97 mL/min (70-130); Calcium 9.4 mg/dL (7.8-10.44); Carbon Dioxide 29 mmol/L (23-31); Chloride 100 mmol/L (98-107); Estimated GFR-MDRD Greater than 90; Glucose 114 mg/dL (80-115); Potassium 3.4 mmol/L (3.5-5.1); Sodium 139 mmol/L (136-145)
--- NOTE | 2019-01-28 09:30 | PRG ---
DATE OF SERVICE: 01/27/2019 SUBJECTIVE: The patient was seen and examined, much more alert and much more awake, very much interactive, noted with the following vital signs. OBJECTIVE: VITAL SIGNS: Afebrile, temperature 98, pulse 109, respiratory rate of 18, O2 saturation of 96% with blood pressure of 160/72. HEENT: Unremarkable. Moist oral mucosa. No conjunctival injection or icterus. NECK: Supple. CARDIOVASCULAR SYSTEM: First and second heart sounds were heard. RESPIRATORY SYSTEM: Clear to auscultation. EXTREMITIES: No peripheral edema. SKIN: No new gross rash. LYMPHATICS: No peripheral lymphadenopathy. LABORATORY INVESTIGATION: Showed a sodium of 134 with a creatinine of 0.54. IMPRESSION: 1. Hyponatremia in the context of syndrome of inappropriate antidiuretic hormone secretion. 2. Possible oropharyngeal candidiasis. 3. Alcohol abuse. 4. . PLAN: Job ID: [id number]
[2019-01-28] MEDS: Famotidine/PF 20 mg/2ml Vial SLOW IVP SCH ×2 (09:56→19:34)
[2019-01-28] MEDS: Nystatin 500,000 UNITS/5 ML UDCUP SSW SCH ×5 (10:01→19:34)
[2019-01-28] MEDS: Famotidine 20 MG TAB PO SCH ×2 (10:01→19:51)
[2019-01-28] MEDS: Folic Acid 1 MG TAB PO SCH (10:02)
[2019-01-28] MEDS: Multivitamin W/ Minerals 1 TAB PO SCH (10:02)
[2019-01-28] MEDS: Thiamine 100 MG TAB PO SCH (10:02)
[2019-01-28] MEDS: Cyanocobalamin (Vitamin B-12) 1,000 MCG TAB PO SCH (10:02)
[2019-01-28] MEDS: Dronabinol 2.5 MG CAP PO SCH ×2 (10:02→18:03)
[2019-01-28] MEDS: Nicotine 7 MG PATCH TD SCH (11:22)
[2019-01-28] MEDS ORDERED: Potassium Chloride 20 MEQ TAB PO SCH (11:30)
--- NOTE | 2019-01-28 17:17 | PRG ---
DATE OF SERVICE: 01/28/2019 SUBJECTIVE: The patient is seen and examined. Doing remarkably so much better. Noted with the following vital signs. OBJECTIVE: VITAL SIGNS: Afebrile, temperature 98.3, pulse is 93, respiratory rate of 22, O2 saturations are 95%, with blood pressure 124/72. HEENT: Unremarkable. CARDIOVASCULAR SYSTEM: First and second heart sounds were heard. RESPIRATORY SYSTEM: Clear to auscultation. DIGESTIVE SYSTEM: Revealed a benign abdomen with positive bowel sounds. EXTREMITIES: No peripheral edema. SKIN: No new gross rash. LYMPHATICS: No peripheral lymphadenopathy. LABORATORY INVESTIGATION: Reviewed. Hemoglobin of 12.0 and white count of 13,900. Chemistry showed a potassium of 3.4, sodium of 139. IMPRESSION: 1. Hyponatremia in the context of syndrome of inappropriate antidiuretic hormone secretion, much improved. 2. Mild hypokalemia. 3. Alcohol abuse. 4. Moderate protein energy malnutrition. PLAN: 1. The patient's diet to be consistent more of increased protein, devoid of animal meat. 2. Encourage to discontinue alcohol abuse. 3. Continue current management. 4. Avoid daily blood draws, especially CBC to avoid iatrogenic anemia. Job ID: [id number]
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
[2019-01-29] MEDS: Famotidine 20 MG TAB PO SCH ×2 (08:29→19:12)
[2019-01-29] MEDS: Folic Acid 1 MG TAB PO SCH (08:29)
[2019-01-29] MEDS: Multivitamin W/ Minerals 1 TAB PO SCH (08:29)
[2019-01-29] MEDS: Dronabinol 2.5 MG CAP PO SCH ×2 (08:29→17:03)
[2019-01-29] MEDS: Cyanocobalamin (Vitamin B-12) 1,000 MCG TAB PO SCH (08:29)
[2019-01-29] MEDS: Thiamine 100 MG TAB PO SCH (08:30)
[2019-01-29] MEDS: Famotidine/PF 20 mg/2ml Vial SLOW IVP SCH ×2 (08:31→18:54)
[2019-01-29] MEDS: Nystatin 500,000 UNITS/5 ML UDCUP SSW SCH ×4 (08:31→18:54)
[2019-01-29] MEDS: Potassium Chloride 20 MEQ TAB PO SCH (08:34)
[2019-01-29] MEDS: Magnesium Oxide 400 MG TAB PO SCH (08:34)
[2019-01-29] MEDS: Nicotine 7 MG PATCH TD SCH (13:14)
--- NOTE | 2019-01-29 16:23 | PRG ---
DATE OF SERVICE: 01/29/2019 SUBJECTIVE: The patient is seen and examined, feeling much better. Noted with the following vital signs. OBJECTIVE: VITAL SIGNS: Afebrile, temperature 98, pulse 88, respiratory rate of 18, O2 saturations of 96%, and blood pressure 102/61. HEENT: Unremarkable. CARDIOVASCULAR SYSTEM: First and second heart sounds were heard. RESPIRATORY SYSTEM: Clear to auscultation. DIGESTIVE SYSTEM: Revealed a benign abdomen with positive bowel sounds. EXTREMITIES: No peripheral edema. SKIN: No new gross rash. LYMPHATICS: No peripheral lymphadenopathy. IMPRESSION: 1. Hyponatremia in the context of syndrome of inappropriate antidiuretic hormone secretion. 2. Alcohol abuse. PLAN: 1. Discontinue Blake catheter. 2. Liberalize fluid intake a little bit more. 3. Further management to be dependent on the clinical course. Meanwhile, the patient to continue with increased meat intake. Job ID: [id number]
--- NOTE | 2019-01-29 20:38 | PDOC.HOSPP ---
- Subjective Encounter Date: 01/29/19 Encounter Time: 10:36 Subjective: 68 y/o male with chronic alcoholism admitted after he was found down and unresponsive. Treated with dextrose for hypoglycemia with improvement of responsiveness but subsequently became agitation. Mental status has improved since 01/26/2019 and oral intake is improving. - Objective Vital Signs & Weight: Vital Signs (12 hours) Temp Pulse Resp BP BP BP Pulse Ox 01/29/19 19:15 98.4 F 88 20 104/68 96 01/29/19 16:00 98 F 88 17 123/83 96 01/29/19 11:44 112/61 01/29/19 11:37 98 F 88 18 112/61 96 Weight Admit Weight 104 lb 0.931 oz Weight 114 lb 6.013 oz Most Recent Monitor Data Heart Rate from ECG 105 NIBP 142/87 NIBP BP-Mean 105 Respiration from ECG 18 SpO2 90 I&O: 01/28/19 01/29/19 01/30/19 06:59 06:59 06:59 Intake Total 300 100 250 Output Total 1550 950 700 Balance -1250 -850 -450 Result Diagrams: 01/28/19 06:08 01/28/19 06:08 Additional Labs: Accuchecks 01/29/19 01/29/19 01/29/19 19:20 16:27 11:39 POC Glucose 81 72 188 H 01/29/19 01/28/19 04:25 19:35 POC Glucose 88 207 H Hospitalist ROS - Medication Medications: Active Medications Generic Name Dose Route Start Last Admin Trade Name Freq PRN Reason Stop Dose Admin Cyanocobalamin 1,000 mcg 01/22/19 09:00 01/29/19 08:29 Vitamin B-12 PO 1,000 mcg DAILY RENETTA Administration Dextrose/Water 25 gm 01/17/19 15:23 01/26/19 04:47 Dextrose 50% SLOW IVP 25 gm PRN PRN Administration Hypoglycemia Dronabinol 2.5 mg 01/26/19 16:30 01/29/19 17:03 Marinol PO 2.5 mg BID-AC RENETTA Administration Famotidine 20 mg 01/17/19 21:00 01/29/19 18:54 Pepcid SLOW IVP Not Given BID RENETTA Famotidine 20 mg 01/22/19 09:00 01/29/19 19:12 Pepcid PO Not Given BID RENETTA Folic Acid 1 mg 01/22/19 09:00 01/29/19 08:29 Folvite PO 1 mg DAILY RENETTA Administration Iron/Minerals/Multivitamins 1 tab 01/26/19 09:00 01/29/19 08:29 Theragran M PO 1 tab DAILY RENETTA Administration Magnesium Oxide 400 mg 01/29/19 09:00 01/29/19 08:34 Magnesium Oxide PO 400 mg DAILY RENETTA Administration Nicotine 7 mg 01/22/19 12:00 01/29/19 13:14 Nicoderm Patch TD 7 mg 1200 RENETTA Administration Nystatin 500,000 units 01/26/19 13:00 01/29/19 18:54 Mycostatin SSW Not Given QID RENETTA Potassium Chloride 20 meq 01/29/19 09:00 01/29/19 08:34 K-Dur PO 20 meq DAILY RENETTA Administration Sodium Chloride 10 ml 01/20/19 09:00 01/29/19 19:13 Flush - Normal Saline IVF 10 ml Q12HR RENETTA Administration Thiamine HCl 100 mg 01/22/19 09:00 01/29/19 08:30 Thiamine PO 100 mg DAILY RENETTA Administration - Exam General Appearance: awake alert General - other findings: cachetic Eye: anicteric sclera ENT: normocephalic atraumatic Neck: symmetric Heart: RRR Respiratory: no wheezes, no ronchi, normal chest expansion, no tachypnea Respiratory - other findings: fair air entry with some transmitted sound Gastrointestinal: soft, non-tender, non-distended, normal bowel sounds Extremities: no edema Neurological: CN's grossly intact, no focal deficits Psychiatric: A&O x 3 Hosp A/P (1) Severe protein-calorie malnutrition Code(s): E43 - UNSPECIFIED SEVERE PROTEIN-CALORIE MALNUTRITION Status: Acute (2) Hyponatremia Code(s): E87.1 - HYPO-OSMOLALITY AND HYPONATREMIA Status: Acute (3) Hypokalemia Code(s): E87.6 - HYPOKALEMIA Status: Acute (4) Aspiration pneumonia Code(s): J69.0 - PNEUMONITIS DUE TO INHALATION OF FOOD AND VOMIT Status: Acute (5) Toxic metabolic encephalopathy Code(s): G92 - TOXIC ENCEPHALOPATHY Status: Acute (6) Chronic alcohol abuse Code(s): F10.10 - ALCOHOL ABUSE, UNCOMPLICATED Status: Chronic (7) Cocaine abuse Code(s): F14.10 - COCAINE ABUSE, UNCOMPLICATED Status: Chronic (8) Failure to thrive in adult Status: Chronic (9) SIADH (syndrome of inappropriate ADH production) Status: Acute (10) Hypomagnesemia Code(s): E83.42 - HYPOMAGNESEMIA Status: Acute - Plan [place] oral intake as tolerated advised Monitor electrolytres and replete as needed. Continue magnesium, potassium and multivitamins supplementation Continue fluid restriction. For discharge once placement is concluded.
[2019-01-30 07:27] LABS: Albumin 3.1 g/dL (3.4-4.8); Anion Gap 16 mmol/L (10-20); BUN (Urea Nitrogen) 10 mg/dL (8.4-25.7); BUN/Creatinine Ratio 16.39; Calc. Creatinine Clearance 81 mL/min (70-130); Calcium 9.5 mg/dL (7.8-10.44); Carbon Dioxide 28 mmol/L (23-31); Chloride 98 mmol/L (98-107); Estimated GFR-MDRD Greater than 90; Glucose 109 mg/dL (80-115); Phosphorus 4.3 mg/dL (2.3-4.7); Potassium 3.8 mmol/L (3.5-5.1); Sodium 138 mmol/L (136-145)
[2019-01-30] MEDS: Multivitamin W/ Minerals 1 TAB PO SCH (09:18)
[2019-01-30] MEDS: Thiamine 100 MG TAB PO SCH (09:19)
[2019-01-30] MEDS: Famotidine/PF 20 mg/2ml Vial SLOW IVP SCH ×2 (09:19→19:49)
[2019-01-30] MEDS: Famotidine 20 MG TAB PO SCH ×2 (09:19→18:58)
[2019-01-30] MEDS: Cyanocobalamin (Vitamin B-12) 1,000 MCG TAB PO SCH (09:19)
[2019-01-30] MEDS: Folic Acid 1 MG TAB PO SCH (09:19)
[2019-01-30] MEDS: Potassium Chloride 20 MEQ TAB PO SCH (09:20)
[2019-01-30] MEDS: Magnesium Oxide 400 MG TAB PO SCH (09:20)
[2019-01-30] MEDS: Dronabinol 2.5 MG CAP PO SCH ×2 (10:39→16:51)
--- NOTE | 2019-01-30 12:42 | PDOC.HOSPP ---
- Subjective Encounter Date: 01/30/19 Encounter Time: 12:41 Subjective: 68 y/o male with chronic alcoholism admitted after he was found down and unresponsive. Treated with dextrose for hypoglycemia with improvement of responsiveness but subsequently became agitation. Agitation has subsided. Oral intake remained poor. patient reportedly pocketing his food. Remained afebrile - Objective Vital Signs & Weight: Vital Signs (12 hours) Temp Pulse Resp BP BP Pulse Ox 01/30/19 12:00 131/79 01/30/19 11:00 98.4 F 98 17 131/79 98 01/30/19 07:00 98.3 F 92 18 129/76 94 L Weight Admit Weight 104 lb 0.931 oz Weight 108 lb Most Recent Monitor Data Heart Rate from ECG 105 NIBP 142/87 NIBP BP-Mean 105 Respiration from ECG 18 SpO2 90 I&O: 01/29/19 01/30/19 01/31/19 06:59 06:59 06:59 Intake Total 100 700 Output Total 950 700 Balance -850 0 Result Diagrams: 01/28/19 06:08 01/30/19 05:32 Additional Labs: Accuchecks 01/30/19 01/30/19 01/30/19 11:48 05:59 04:46 POC Glucose 81 155 H 46 L* 01/29/19 01/29/19 19:20 16:27 POC Glucose 81 72 Hospitalist ROS - Medication Medications: Active Medications Generic Name Dose Route Start Last Admin Trade Name Freq PRN Reason Stop Dose Admin Cyanocobalamin 1,000 mcg 01/22/19 09:00 01/30/19 09:19 Vitamin B-12 PO 1,000 mcg DAILY RENETTA Administration Dextrose/Water 25 gm 01/17/19 15:23 01/26/19 04:47 Dextrose 50% SLOW IVP 25 gm PRN PRN Administration Hypoglycemia Dronabinol 2.5 mg 01/26/19 16:30 01/30/19 10:39 Marinol PO 2.5 mg BID-AC RENETTA Administration Famotidine 20 mg 01/17/19 21:00 01/30/19 09:19 Pepcid SLOW IVP Not Given BID RENETTA Famotidine 20 mg 01/22/19 09:00 01/30/19 09:19 Pepcid PO 20 mg BID RENETTA Administration Folic Acid 1 mg 01/22/19 09:00 01/30/19 09:19 Folvite PO 1 mg DAILY RENETTA Administration Iron/Minerals/Multivitamins 1 tab 01/26/19 09:00 01/30/19 09:18 Theragran M PO 1 tab DAILY RENETTA Administration Magnesium Oxide 400 mg 01/29/19 09:00 01/30/19 09:20 Magnesium Oxide PO 400 mg DAILY RENETTA Administration Nicotine 7 mg 01/22/19 12:00 01/29/19 13:14 Nicoderm Patch TD 7 mg 1200 RENETTA Administration Nystatin 500,000 units 01/26/19 13:00 01/29/19 18:54 Mycostatin SSW Not Given QID RENETTA Potassium Chloride 20 meq 01/29/19 09:00 01/30/19 09:20 K-Dur PO 20 meq DAILY RENETTA Administration Sodium Chloride 10 ml 01/20/19 09:00 01/30/19 09:21 Flush - Normal Saline IVF 10 ml Q12HR RENETTA Administration Thiamine HCl 100 mg 01/22/19 09:00 01/30/19 09:19 Thiamine PO 100 mg DAILY RENETTA Administration - Exam General Appearance: awake alert General - other findings: cachetic and chronically ill looking ENT: normocephalic atraumatic Neck: supple, symmetric Heart: RRR Respiratory: no wheezes, no ronchi Respiratory - other findings: fair air entry bilaterally with some transmitted sound Gastrointestinal: soft, non-distended, normal bowel sounds Gastrointestinal - other findings: scaphoid Extremities: no edema Neurological: CN's grossly intact, no focal deficits Musculoskeletal: generalized weakness, diffuse muscle atrophy Psychiatric - other findings: oriented to person at least. speech is unclear and patient talk minimaly Hosp A/P (1) Severe protein-calorie malnutrition Code(s): E43 - UNSPECIFIED SEVERE PROTEIN-CALORIE MALNUTRITION Status: Acute (2) Hyponatremia Code(s): E87.1 - HYPO-OSMOLALITY AND HYPONATREMIA Status: Acute (3) Hypokalemia Code(s): E87.6 - HYPOKALEMIA Status: Acute (4) Aspiration pneumonia Code(s): J69.0 - PNEUMONITIS DUE TO INHALATION OF FOOD AND VOMIT Status: Acute (5) Toxic metabolic encephalopathy Code(s): G92 - TOXIC ENCEPHALOPATHY Status: Acute (6) Chronic alcohol abuse Code(s): F10.10 - ALCOHOL ABUSE, UNCOMPLICATED Status: Chronic (7) Cocaine abuse Code(s): F14.10 - COCAINE ABUSE, UNCOMPLICATED Status: Chronic (8) Failure to thrive in adult Status: Chronic (9) SIADH (syndrome of inappropriate ADH production) Status: Acute (10) Hypomagnesemia Code(s): E83.42 - HYPOMAGNESEMIA Status: Acute - Plan [place] oral intake as tolerated advised Monitor electrolytres and replete as needed. Continue magnesium, potassium and multivitamins supplementation Discontinue fluid restriction. For discharge once placement is concluded.
[2019-01-30] MEDS: Nystatin 500,000 UNITS/5 ML UDCUP SSW SCH ×4 (13:24→18:58)
[2019-01-30] MEDS: Nicotine 7 MG PATCH TD SCH (14:07)
--- NOTE | 2019-01-30 17:17 | PRG ---
DATE OF SERVICE: 01/30/2019 SUBJECTIVE: The patient noted with the following vital signs. OBJECTIVE: VITAL SIGNS: Afebrile, temperature 98.4, pulse 98, respiratory rate of 17, blood pressure 131/79, and O2 saturations of 98%. HEENT: Unremarkable. CARDIOVASCULAR SYSTEM: First and second heart sounds were heard. RESPIRATORY SYSTEM: Clear to auscultation. DIGESTIVE SYSTEM: Revealed a benign abdomen. EXTREMITIES: No peripheral edema. SKIN: No new gross rash. LYMPHATICS: No peripheral lymphadenopathy. LABORATORY INVESTIGATION: Significant for sodium of 138. IMPRESSION: 1. Hyponatremia in the context of syndrome of inappropriate antidiuretic hormone secretion, which is much improved. 2. Protein energy malnutrition. The patient seems to be eating better. 3. Alcohol abuse. PLAN: 1. The patient to continue with current management. 2. Continue to encourage this patient to avoid alcohol abuse. 3. Further management to be dependent on the clinical course. Job ID: [id number]
[2019-01-31] MEDS: Multivitamin W/ Minerals 1 TAB PO SCH ×2 (07:54→08:08)
[2019-01-31] MEDS: Potassium Chloride 20 MEQ TAB PO SCH ×2 (07:54→08:08)
[2019-01-31] MEDS: Thiamine 100 MG TAB PO SCH ×2 (07:54→08:08)
[2019-01-31] MEDS: Folic Acid 1 MG TAB PO SCH ×2 (07:55→08:08)
[2019-01-31] MEDS: Magnesium Oxide 400 MG TAB PO SCH ×2 (07:55→08:08)
[2019-01-31] MEDS: Famotidine 20 MG TAB PO SCH ×3 (07:55→20:27)
[2019-01-31] MEDS: Cyanocobalamin (Vitamin B-12) 1,000 MCG TAB PO SCH ×2 (07:56→08:08)
[2019-01-31] MEDS: Famotidine/PF 20 mg/2ml Vial SLOW IVP SCH ×2 (07:57→20:27)
[2019-01-31] MEDS: Dronabinol 2.5 MG CAP PO SCH ×2 (08:09→16:09)
[2019-01-31] MEDS: Nystatin 500,000 UNITS/5 ML UDCUP SSW SCH ×4 (13:30→20:27)
[2019-01-31] MEDS: Nicotine 7 MG PATCH TD SCH (13:32)
[2019-01-31] MEDS ORDERED: Famotidine 20 MG TAB PO SCH (15:30)
[2019-01-31] MEDS ORDERED: Thiamine 100 MG TAB PO SCH (15:30)
[2019-01-31] MEDS ORDERED: Potassium Chloride 20 MEQ TAB PO SCH (15:30)
[2019-01-31] MEDS ORDERED: Folic Acid 1 MG TAB PO SCH (15:30)
[2019-01-31] MEDS ORDERED: Cyanocobalamin (Vitamin B-12) 1,000 MCG TAB PO SCH (15:30)
[2019-01-31] MEDS ORDERED: Magnesium Oxide 400 MG TAB PO SCH (15:30)
[2019-01-31] MEDS ORDERED: Multivitamin W/ Minerals 1 TAB PO SCH (15:45)
--- NOTE | 2019-01-31 17:40 | PRG ---
DATE OF SERVICE: 01/31/2019 SUBJECTIVE: The patient was seen and examined. Noted with the following vital signs. OBJECTIVE: VITAL SIGNS: Afebrile, temperature 98.6, pulse 105, respiratory rate of 20, and blood pressure 122/74. HEENT: Unremarkable. CARDIOVASCULAR SYSTEM: First and second heart sounds were heard. RESPIRATORY SYSTEM: Clear to auscultation. DIGESTIVE SYSTEM: Revealed a benign abdomen with positive bowel sounds. EXTREMITIES: No peripheral edema. SKIN: No new gross rash. LYMPHATICS: No peripheral lymphadenopathy. IMPRESSION: Hyponatremia in the context of syndrome of inappropriate antidiuretic hormone secretion. PLAN: 1. seems not to be cooperating and eating well again and spitting out all his medications. The patient is encouraged to eat more, this will have to sustain the sodium level. 2. Further management will be dependent on the clinical course. Job ID: [id number]
--- NOTE | 2019-01-31 18:44 | PDOC.HOSPP ---
- Subjective Encounter Date: 01/31/19 Encounter Time: 09:42 Subjective: 68 y/o male with chronic alcoholism admitted after he was found down and unresponsive. Treated with dextrose for hypoglycemia with improvement of responsiveness but subsequently became agitation. Agitation has subsided. Oral intake remained poor. Refusing meds intermittently. Remained afebrile - Objective Vital Signs & Weight: Vital Signs (12 hours) Temp Pulse Resp BP BP BP Pulse Ox 01/31/19 16:00 122/74 01/31/19 15:51 98.6 F 105 H 20 122/74 95 01/31/19 12:00 113/70 01/31/19 11:33 98.8 F 103 H 20 113/70 94 L 01/31/19 08:00 127/66 96 01/31/19 07:40 98.9 F 97 20 127/66 96 Weight Admit Weight 104 lb 0.931 oz Weight 109 lb 15.359 oz Most Recent Monitor Data Heart Rate from ECG 105 NIBP 142/87 NIBP BP-Mean 105 Respiration from ECG 18 SpO2 90 I&O: 01/30/19 01/31/19 02/01/19 06:59 06:59 06:59 Intake Total 294 396 1458 Output Total 700 Balance 0 450 1320 Result Diagrams: 01/28/19 06:08 01/30/19 05:32 Additional Labs: Accuchecks 01/31/19 01/31/19 01/31/19 15:49 11:34 05:05 POC Glucose 279 H 265 H 125 H 01/30/19 20:10 POC Glucose 163 H Hospitalist ROS - Medication Medications: Active Medications Generic Name Dose Route Start Last Admin Trade Name Sánchezq PRN Reason Stop Dose Admin Cyanocobalamin 1,000 mcg 01/22/19 09:00 01/31/19 08:08 Vitamin B-12 PO Not Given DAILY RENETTA Dextrose/Water 25 gm 01/17/19 15:23 01/26/19 04:47 Dextrose 50% SLOW IVP 25 gm PRN PRN Administration Hypoglycemia Dronabinol 2.5 mg 01/26/19 16:30 01/31/19 16:09 Marinol PO 2.5 mg BID-AC RENETTA Administration Famotidine 20 mg 01/17/19 21:00 01/31/19 07:57 Pepcid SLOW IVP Not Given BID RENETTA Famotidine 20 mg 01/22/19 09:00 01/31/19 08:08 Pepcid PO Not Given BID RENETTA Folic Acid 1 mg 01/22/19 09:00 01/31/19 08:08 Folvite PO Not Given DAILY RENETTA Iron/Minerals/Multivitamins 1 tab 01/26/19 09:00 01/31/19 08:08 Theragran M PO Not Given DAILY RENETTA Magnesium Oxide 400 mg 01/29/19 09:00 01/31/19 08:08 Magnesium Oxide PO Not Given DAILY RENETTA Nicotine 7 mg 01/22/19 12:00 01/31/19 13:32 Nicoderm Patch TD 7 mg 1200 RENETTA Administration Nystatin 500,000 units 01/26/19 13:00 01/31/19 16:09 Mycostatin SSW 500,000 units QID RENETTA Administration Potassium Chloride 20 meq 01/29/19 09:00 01/31/19 08:08 K-Dur PO Not Given DAILY RENETTA Sodium Chloride 10 ml 01/20/19 09:00 01/31/19 07:56 Flush - Normal Saline IVF 10 ml Q12HR RENETTA Administration Thiamine HCl 100 mg 01/22/19 09:00 01/31/19 08:08 Thiamine PO Not Given DAILY [facility] - Exam General Appearance: awake alert General - other findings: cachetic Eye: anicteric sclera ENT: normocephalic atraumatic Neck: supple, symmetric Heart: RRR Respiratory: no wheezes, no ronchi Respiratory - other findings: fair air entry with scattered transmitted sound Gastrointestinal: soft, non-tender, non-distended, normal bowel sounds Extremities: no edema Neurological: CN's grossly intact Musculoskeletal: generalized weakness, diffuse muscle atrophy Psychiatric: oriented to person Hosp A/P (1) Severe protein-calorie malnutrition Code(s): E43 - UNSPECIFIED SEVERE PROTEIN-CALORIE MALNUTRITION Status: Acute (2) Hyponatremia Code(s): E87.1 - HYPO-OSMOLALITY AND HYPONATREMIA Status: Acute (3) Hypokalemia Code(s): E87.6 - HYPOKALEMIA Status: Acute (4) Aspiration pneumonia Code(s): J69.0 - PNEUMONITIS DUE TO INHALATION OF FOOD AND VOMIT Status: Acute (5) Toxic metabolic encephalopathy Code(s): G92 - TOXIC ENCEPHALOPATHY Status: Acute (6) Chronic alcohol abuse Code(s): F10.10 - ALCOHOL ABUSE, UNCOMPLICATED Status: Chronic (7) Cocaine abuse Code(s): F14.10 - COCAINE ABUSE, UNCOMPLICATED Status: Chronic (8) Failure to thrive in adult Status: Chronic (9) SIADH (syndrome of inappropriate ADH production) Status: Acute (10) Hypomagnesemia Code(s): E83.42 - HYPOMAGNESEMIA Status: Acute - Plan Oral intake remained poor despite great effor on the nursing staff. Monitor electrolytes and replete as needed. Continue magnesium, potassium and multivitamins supplementation. [place] oral intake as tolerated. For discharge once placement is concluded. Will have to re visit goal of care as it concerns discharge
[2019-02-01 06:36] LABS: Hemoglobin 12.4 g/dL (14.0-18.0); Mean Corpuscular HGB CONC 32.1 g/dL (32.0-36.0); Mean Corpuscular Hemoglobin 32.4 pg (27.0-31.0); Mean Platelet Volume 6.5 fL (7.4-10.4); Platelet Count 628 thou/uL (130-400); RBC Distribution Width 13.3 % (11.5-14.5); Red Blood Cell (RBC) Count 3.83 mill/uL (4.70-6.10); White Blood Cell (WBC) Count 9.5 thou/uL (4.8-10.8)
[2019-02-01 06:46] LABS: Albumin 3.2 g/dL (3.4-4.8); Anion Gap 12 mmol/L (10-20); BUN (Urea Nitrogen) 10 mg/dL (8.4-25.7); BUN/Creatinine Ratio 17.24; Calc. Creatinine Clearance 87 mL/min (70-130); Calcium 9.2 mg/dL (7.8-10.44); Carbon Dioxide 29 mmol/L (23-31); Chloride 98 mmol/L (98-107); Estimated GFR-MDRD Greater than 90; Glucose 130 mg/dL (80-115); Magnesium 1.4 mg/dL (1.6-2.6); Phosphorus 2.9 mg/dL (2.3-4.7); Potassium 4.1 mmol/L (3.5-5.1); Sodium 135 mmol/L (136-145)
[2019-02-01 06:56] LABS: Band 1 % (5-11); Eosinophils 2 % (0-10); Lymphocytes 28 % (21-51); MDiff Complete? YES; Monocytes 13 % (0-10); Neutrophil 56 % (42-75); Platelet Morphology Comment Appears Increased
[2019-02-01] MEDS: Magnesium Oxide 400 MG TAB PO SCH ×2 (08:59→20:00)
[2019-02-01] MEDS: Potassium Chloride 20 MEQ TAB PO SCH (09:00)
[2019-02-01] MEDS: Multivitamin W/ Minerals 1 TAB PO SCH (09:00)
[2019-02-01] MEDS: Folic Acid 1 MG TAB PO SCH (09:00)
[2019-02-01] MEDS: Famotidine 20 MG TAB PO SCH ×2 (09:00→20:00)
[2019-02-01] MEDS: Thiamine 100 MG TAB PO SCH (09:00)
[2019-02-01] MEDS: Cyanocobalamin (Vitamin B-12) 1,000 MCG TAB PO SCH (09:00)
[2019-02-01] MEDS: Dronabinol 2.5 MG CAP PO SCH ×2 (09:01→16:30)
[2019-02-01] MEDS: Famotidine/PF 20 mg/2ml Vial SLOW IVP SCH ×2 (09:01→20:01)
[2019-02-01] MEDS: Nystatin 500,000 UNITS/5 ML UDCUP SSW SCH ×4 (09:02→20:00)
[2019-02-01] MEDS: Nicotine 7 MG PATCH TD SCH (10:56)
[2019-02-01] MEDS ORDERED: Magnesium Sulfate 4 GM in Sodium Chloride 0.9% 250 ML 250 ML IVPB SCH (12:00)
[2019-02-01 14:20] VITALS: BMI 17.2
--- NOTE | 2019-02-01 16:29 | PDOC.HOSPP ---
- Subjective Encounter Date: 02/01/19 Encounter Time: 10:28 Subjective: 68 y/o male with chronic alcoholism admitted after he was found down and unresponsive. Treated with dextrose for hypoglycemia with improvement of responsiveness but subsequently became agitation. Agitation has subsided. No new problem. Oral intake remained poor. Refusing meds and food intermittently. seem to be accepting ensure more. Remained afebrile - Objective Vital Signs & Weight: Vital Signs (12 hours) Temp Pulse Resp BP BP BP Pulse Ox 02/01/19 13:38 98.5 F 95 16 112/72 94 L 02/01/19 12:00 112/72 02/01/19 08:00 95 02/01/19 07:54 98.5 F 95 18 130/79 94 L Weight Admit Weight 104 lb 0.931 oz Weight 109 lb 5 oz Most Recent Monitor Data Heart Rate from ECG 105 NIBP 142/87 NIBP BP-Mean 105 Respiration from ECG 18 SpO2 90 I&O: 01/31/19 02/01/19 02/02/19 06:59 06:59 06:59 Intake Total 450 1320 Balance 450 1320 Result Diagrams: 02/01/19 05:32 02/01/19 05:32 Additional Labs: Accuchecks 02/01/19 02/01/19 01/31/19 11:28 05:37 20:03 POC Glucose 131 H 124 H 258 H 01/31/19 15:49 POC Glucose 279 H Hospitalist ROS - Medication Medications: Active Medications Generic Name Dose Route Start Last Admin Trade Name Freq PRN Reason Stop Dose Admin Cyanocobalamin 1,000 mcg 01/22/19 09:00 02/01/19 09:00 Vitamin B-12 PO 1,000 mcg DAILY RENETTA Administration Dextrose/Water 25 gm 01/17/19 15:23 01/26/19 04:47 Dextrose 50% SLOW IVP 25 gm PRN PRN Administration Hypoglycemia Dronabinol 2.5 mg 01/26/19 16:30 02/01/19 09:01 Marinol PO 2.5 mg BID-AC RENETTA Administration Famotidine 20 mg 01/17/19 21:00 02/01/19 09:01 Pepcid SLOW IVP Not Given BID RENETTA Famotidine 20 mg 01/22/19 09:00 02/01/19 09:00 Pepcid PO 20 mg BID RENETTA Administration Folic Acid 1 mg 01/22/19 09:00 02/01/19 09:00 Folvite PO 1 mg DAILY RENETTA Administration Iron/Minerals/Multivitamins 1 tab 01/26/19 09:00 02/01/19 09:00 Theragran M PO 1 tab DAILY RENETTA Administration Nicotine 7 mg 01/22/19 12:00 02/01/19 10:56 Nicoderm Patch TD 7 mg 1200 RENETTA Administration Nystatin 500,000 units 01/26/19 13:00 02/01/19 13:22 Mycostatin SSW 500,000 units QID RENETTA Administration Potassium Chloride 20 meq 01/29/19 09:00 02/01/19 09:00 K-Dur PO 20 meq DAILY RENETTA Administration Sodium Chloride 10 ml 01/20/19 09:00 02/01/19 09:02 Flush - Normal Saline IVF 10 ml Q12HR RENETTA Administration Thiamine HCl 100 mg 01/22/19 09:00 02/01/19 09:00 Thiamine PO 100 mg DAILY RENETTA Administration - Exam General Appearance: awake alert General - other findings: cachetic Eye: anicteric sclera ENT: normocephalic atraumatic Neck: supple, symmetric Heart: RRR Respiratory: no wheezes, no ronchi Respiratory - other findings: fair air entry bilateraly with some transmitted sound Gastrointestinal: soft, non-tender, non-distended, normal bowel sounds Extremities: no edema Neurological: CN's grossly intact, no focal deficits Psychiatric: oriented to person, oriented to place Hosp A/P (1) Severe protein-calorie malnutrition Code(s): E43 - UNSPECIFIED SEVERE PROTEIN-CALORIE MALNUTRITION Status: Acute (2) Hyponatremia Code(s): E87.1 - HYPO-OSMOLALITY AND HYPONATREMIA Status: Acute (3) Hypokalemia Code(s): E87.6 - HYPOKALEMIA Status: Acute (4) Aspiration pneumonia Code(s): J69.0 - PNEUMONITIS DUE TO INHALATION OF FOOD AND VOMIT Status: Acute (5) Toxic metabolic encephalopathy Code(s): G92 - TOXIC ENCEPHALOPATHY Status: Acute (6) Chronic alcohol abuse Code(s): F10.10 - ALCOHOL ABUSE, UNCOMPLICATED Status: Chronic (7) Cocaine abuse Code(s): F14.10 - COCAINE ABUSE, UNCOMPLICATED Status: Chronic (8) Failure to thrive in adult Status: Chronic (9) SIADH (syndrome of inappropriate ADH production) Status: Acute (10) Hypomagnesemia Code(s): E83.42 - HYPOMAGNESEMIA Status: Acute - Plan [place] serum magnesium with 4 grams of magnesium sulphate. Increase ensure to 6 cans per day Monitor electrolytes and replete as needed. Increase magnesium ocxide to 400 bid Continue potassium and multivitamins supplementation. [place] oral intake as tolerated. For discharge once placement is concluded.
--- NOTE | 2019-02-01 20:13 | PRG ---
DATE OF SERVICE: 02/01/2019 SUBJECTIVE: The patient is noted with the following vital signs. OBJECTIVE: VITAL SIGNS: Afebrile, temperature 98.5, pulse 95, respiratory rate of 16, O2 saturation 94% with blood pressure 112/72. HEENT: Unremarkable. CARDIOVASCULAR SYSTEM: First and second heart sounds were heard. RESPIRATORY SYSTEM: Clear to auscultation. DIGESTIVE SYSTEM: Revealed a benign abdomen. EXTREMITIES: No peripheral edema. SKIN: No new gross rash. LYMPHATICS: No peripheral lymphadenopathy. IMPRESSION: Hyponatremia in the context of syndrome of inappropriate antidiuretic hormone secretion with sodium of 135 today. PLAN: 1. We will continue with current management. 2. Further management to be dependent on the clinical course. Job ID: [id number]
[2019-02-02 07:39] VITALS: TEMP 98.4
[2019-02-02] MEDS: Nystatin 500,000 UNITS/5 ML UDCUP SSW SCH ×2 (08:05→11:58)
[2019-02-02] MEDS: Magnesium Oxide 400 MG TAB PO SCH (08:06)
[2019-02-02] MEDS: Potassium Chloride 20 MEQ TAB PO SCH (08:06)
[2019-02-02] MEDS: Folic Acid 1 MG TAB PO SCH (08:06)
[2019-02-02] MEDS: Multivitamin W/ Minerals 1 TAB PO SCH (08:06)
[2019-02-02] MEDS: Cyanocobalamin (Vitamin B-12) 1,000 MCG TAB PO SCH (08:06)
[2019-02-02] MEDS: Famotidine/PF 20 mg/2ml Vial SLOW IVP SCH (08:07)
[2019-02-02] MEDS: Thiamine 100 MG TAB PO SCH (08:07)
[2019-02-02] MEDS: Famotidine 20 MG TAB PO SCH (09:26)
[2019-02-02] MEDS: Dronabinol 2.5 MG CAP PO SCH (09:42)
[2019-02-02 11:29] VITALS: BP 124/82
[2019-02-02] MEDS: Nicotine 7 MG PATCH TD SCH (11:55)
--- NOTE | 2019-02-02 16:17 | PDOC.EVN ---
Event Note - Event Note Event Note: Discharge summary distated. #[id number]
--- NOTE | 2019-02-02 16:55 | DIS ---
DATE OF ADMISSION: 01/17/2019 DATE OF DISCHARGE: 02/02/2019 DISCHARGE DIAGNOSES: 1. Acute toxic and metabolic encephalopathy. 2. Chronic alcohol abuse with withdrawal symptoms. 3. Severe protein-calorie malnutrition. 4. Aspiration pneumonia. 5. Failure to thrive. 6. Syndrome of inappropriate antidiuretic hormone secretion. 7. Hyponatremia. 8. Hypokalemia. 9. Cocaine abuse. 10. Hypomagnesemia. CONSULTS: 1. Pulmonary and Critical Care. 2. Palliative Care. 3. Nephrology. HOSPITAL COURSE: A 68-year-old male with known history of chronic alcoholism, who was admitted after he was found down and unresponsive. The patient was treated with dextrose by EMS for hypoglycemia with improvement in responsiveness, but he developed agitation subsequently. CT scan of the chest performed on presentation was suggestive of left upper lobe infection and the patient was started on antibiotics, IV fluid, and multivitamin. Given his chronic alcohol history, he was also started on alcohol withdrawal protocol with improvement. The patient was initially treated in the ICU, but was later transferred to the floor. Of note, he was initially hypothermic, requiring treatment with Azael Hugger with improvement. The patient remained agitated requiring several psychotropic medications, which made him to be somnolent. Psychotropic medications were later discontinued and he finally woke up and was more cooperative. However, oral intake remained abysmal. Family meeting was conveyed and following discussion about his condition, options of care home with jail facility, as well as care home with hospice were considered, but the patient made a significant improvement in his oral intake and was tolerating Ensure. This, however, was not sustained as he was refusing some of his food and medication. He later developed hyponatremia, which worsened with IV fluid. Evaluation with urine osmolality and serum osmolality was consistent with syndrome of inappropriate ADH secretion, hence Nephrology consult was obtained and the patient was treated with both hypertonic solution and tolvaptan with improvement in sodium level. Discussion about PEG tube was also had with family, but they declined it, preferring for him to eat as much as he could through mouth. He was later [facility] to jail facility for restorative therapy. PHYSICAL EXAMINATION: VITAL SIGNS: Temperature 98.4, pulse 109, respiratory rate 20, SpO2 of 94% on room air, blood pressure is 124/82. GENERAL: Clinically ill-looking cachectic elderly male, in no obvious distress. Afebrile. Anicteric. Acyanotic. HEENT: Normocephalic. Facial wasting noted. CARDIOVASCULAR: Regular rhythm and rate. Tachycardic. No murmur was appreciated. RESPIRATORY: Fair air entry bilaterally with some transmitted sounds. GI: Abdomen is scaphoid, soft, nontender with normal bowel sounds. EXTREMITIES: Diffuse muscle wasting and atrophy noted. Moves all extremities however. No edema appreciated. PARACHUTIST/COMBATANT DIVER QUALIFIED: Conscious and alert. Oriented to person and place. Some memory lapses noted. Moves all extremities. Cranial nerves 2 through 12 are grossly intact. DISCHARGE DISPOSITION: Longterm Facility. DISCHARGE CONDITION: Improved. DISCHARGE MEDICATIONS: Please see discharge med rec. FOLLOWUP: Follow up with care home facility and on discharge with PCP in 2 to 3 weeks. This discharge took more than 36 minutes. Job ID: [id number]
== END 2019-02-02 15:33 | DRG 871 ==
LOC: ERS 13:25 → IMCU/EMU 14:04 → T4-A 01-22 18:05
PROVIDERS: ADMIT Internal Medicine; ATTEND Internal Medicine
DX: A41.9 Sepsis, unspecified organism (principal); G92 Toxic encephalopathy; J69.0 Pneumonitis due to inhalation of food and vomit; E43 Unspecified severe protein-calorie malnutrition; E87.2 Acidosis; M62.82 Rhabdomyolysis; Z68.1 Body mass index [BMI] 19.9 or less, adult; E22.2 Syndrome of inappropriate secretion of antidiuretic hormone; Z66 Do not resuscitate; Z51.5 Encounter for palliative care; F10.229 Alcohol dependence with intoxication, unspecified; F14.929 Cocaine use, unspecified with intoxication, unspecified; E87.6 Hypokalemia; E83.42 Hypomagnesemia; E83.51 Hypocalcemia; E16.2 Hypoglycemia, unspecified; Z79.899 Other long term (current) drug therapy
CPT/HCPCS: 36415; 36416; 71045; 80048; 80053; 80069; 81001; 82140; 82550; 82570; 83605; 83735; 83930; 83935; 84100; 84156; 84295; 84300; 85025; 85027; 87086; 96365; 96374; C9488; J1650; J2060; J2543; J3411; J3475; J3480; J3490; J7042; J7050; J7131; J8597; Q0167; S0028